=== PATIENT | female | born 1995 | race Caucasian/White ===

== ENCOUNTER 2016-02-21 19:45 | Emergency (ER) | payer OTHER ==
[2016-02-21] MEDS ORDERED: LIDOCAINE 4%/TETRACAINE 0.5%/EPI 0.18% 5 ML TOPICAL SOLN TOP ONE (20:30)
--- NOTE | 2016-02-21 20:30 | ER Document Report ---
ED Medical Screen (RME) - General Stated Complaint: POSSIBLE RIGHT THIGH ABCESS Time seen by provider: 20:29 Mode of Arrival: Ambulatory Information source: Patient Notes: 20 yo female 33 weeks c/o painful lump just right of the underwear line monday, gotten larger and more painful since monday. TRAVEL OUTSIDE OF THE [place] IN LAST 30 DAYS: No - Related Data Allergies/Adverse Reactions: acetaminophen [From Vicodin] Allergy (Verified 02/21/16 20:29) hydrocodone [From Vicodin] Allergy (Verified 02/21/16 20:29)
--- NOTE | 2016-02-21 21:35 | ER Document Report ---
ED Skin Rash/Insect Bite/Abscs - General Chief Complaint: Abscess Stated Complaint: POSSIBLE RIGHT THIGH ABCESS Time seen by provider: 21:30 Mode of Arrival: Ambulatory Information source: Patient Notes: 20-year-old female presents to ED with an abscess to the right eye just below the pending Started as small and has gotten bigger and more painful since Monday. Patient is 33 weeks TRAVEL OUTSIDE OF THE [place] IN LAST 30 DAYS: No - HPI Patient complains to provider of: Tender/swollen area - Right upper thigh Onset: Other - Finding Onset/Duration: Gradual, Worse Quality of pain: Sharp, Throbbing Severity: Moderate Pain Level: 4 Skin Character: Abscess - Right upper inner thigh just below the panty line Skin Temperature: Warm Quality of rash: Painful Identify cause: No Exacerbated by: Movement, Walking Relieved by: Denies Similar symptoms previously: No Recently seen / treated by doctor: Yes - Related Data Allergies/Adverse Reactions: acetaminophen [From Vicodin] Allergy (Verified 02/21/16 20:29) hydrocodone [From Vicodin] Allergy (Verified 02/21/16 20:29) Past Medical History - General Information source: Patient - Social History Smoking Status: Former Smoker Cigarette use (# per day): No Chew tobacco use (# tins/day): No Smoking Education Provided: No Frequency of alcohol use: None Drug Abuse: None Occupation: none Lives with: Family Family History: CAD, Hyperlipidemia, Hypertension - Past Medical History Cardiac Medical History: Reports: None Pulmonary Medical History: Reports: None EENT Medical History: Reports: None Neurological Medical History: Reports: None Endocrine Medical History: Reports: None Renal/ Medical History: Reports: None Malignancy Medical History: Reports: None GI Medical History: Reports: None Musculoskeltal Medical History: Reports None Skin Medical History: Reports None Psychiatric Medical History: Reports: None Traumatic Medical History: Reports: None Infectious Medical History: Reports: None Surgical Hx: Negative Past Surgical History: Reports: None Review of Systems - Review of Systems Constitutional: No symptoms reported EENT: No symptoms reported Cardiovascular: No symptoms reported Respiratory: No symptoms reported Gastrointestinal: No symptoms reported Genitourinary: No symptoms reported Female Genitourinary: No symptoms reported Musculoskeletal: No symptoms reported Skin: Other - Abscess to right upper inner thigh Hematologic/Lymphatic: No symptoms reported Neurological/Psychological: No symptoms reported -: Yes All other systems reviewed and negative Physical Exam - Vital signs Interpretation: Normal Notes: Temperature 97.9 pulse 90 respirations 16 pulse ox 100 BP 123/66 - General General appearance: Appears well, Alert - HEENT Head: Normocephalic, Atraumatic Eyes: Normal Pupils: PERRL - Respiratory Respiratory status: No respiratory distress Chest status: Nontender Breath sounds: Normal Chest palpation: Normal - Cardiovascular Rhythm: Regular Heart sounds: Normal auscultation Murmur: No - Abdominal Inspection: Normal Distension: No distension Bowel sounds: Normal Tenderness: Nontender Organomegaly: No organomegaly - Back Back: Normal, Nontender - Extremities General upper extremity: Normal inspection, Nontender, Normal color, Normal ROM , Normal temperature General lower extremity: Normal inspection, Nontender, Normal color, Normal ROM , Normal temperature, Normal weight bearing. No: Lila's sign - Neurological Neuro grossly intact: Yes Cognition: Normal Orientation: AAOx4 Mi Coma Scale Eye Opening: Spontaneous Mi Coma Scale Verbal: Oriented Mi Coma Scale Motor: Obeys Commands [place] Coma Scale Total: 15 Speech: Normal Motor strength normal: LUE, RUE, LLE, RLE Sensory: Normal - Psychological Associated symptoms: Normal affect, Normal mood - Skin Skin Temperature: Warm Skin Moisture: Dry Skin Color: Normal Skin irregularity: Abscess - Right inner upper thigh Procedures - Incision and Drainage Right Upper Thigh Type: Simple Anesthetic type: 1% Lidocaine mL's of anesthetic: 4 Blade size: 11 I&D procedure: Sterile dressing applied, Other - sugical scrub Incision Method: Incision made with needle Notes: 02/21/16 22:38 moderate amount of purulent Discharge - Discharge Clinical Impression: abscess right upper inner thigh Condition: Stable Disposition: HOME, SELF-CARE Additional Instructions: ABSCESS: You have an abscess (boil). This a pus-forming infection, usually due to staph. Some boils may be left to drain on their own, but most require lancing. From the time the tender lump first appears, it may be three or four days before the abscess is ready to martine. Local heat and rest help at this stage of treatment. An antibiotic may prevent spread of the infection. Once the abscess is opened, packing may be placed into it. This is done so pus is not sealed inside by premature closure of the cavity. The packing will be removed at your follow-up visit or you may be advised to remove it yourself at home. Sometimes this packing must be replaced a few times during healing. The wound will heal with surprisingly little scar. Depending on the size and location of an abscess, healing can take one to four weeks. You may shower and wash the area around the incision site two or three times a day. Antibiotics may be prescribed, but are usually not necessary after an abscess has been drained. If you develop fever, chills, worsening pain, or increasing swelling in the area, call the doctor or return immediately. POST INCISION AND DRAINAGE: You have had an incision made to allow drainage of an abscess. The incision must remain open so that pus and debris can drain from the wound. If the abscess cavity is large, packing is placed. This keeps the tissues from collapsing and trapping pus inside, while the body shrinks the cavity. The packing may need to be replaced every day or two. The physician will instruct you on the packing. Keep a bulky dressing over the area. Replace it if it becomes saturated with blood or pus. Do not disturb the packing (if present). You may shower and cleanse the area with gentle soap and warm water two or three times a day. Local warmth may be soothing, and may promote faster healing. Return if you develop high fever or chills, or if you note spreading redness, increasing swelling, or increasing tenderness. CEPHALEXIN: The antibiotic you've been prescribed is a member of the cephalosporin class. This type of antibiotic covers a wide variety of infections, including those of the skin, lungs, and urinary tract. It's useful for staph infections. This antibiotic is slightly similar to the penicillin family. In rare cases , a person who is allergic to penicillin will also be allergic to this medication. If you have had a severe allergic reaction to penicillin, and have not taken this antibiotic since that time, notify your doctor. Antibiotics which cover many germs ("broad spectrum" antibiotics) are more likely to cause diarrhea or "yeast" infections. Women prone to vaginal yeast problems may suffer an attack after taking this antibiotic. In infants, oral thrush (white spots "stuck" on the cheek) or yeast diaper rash may result. See your doctor if these problems occur. Call at once if you develop itching, hives , shortness of breath, or lightheadedness. FOLLOW-UP CARE: Most simple abscesses will not require a follow up visit. If you had packing placed in the abscess, remove it as instructed by the physician. If you have been referred to a physician for follow-up care, call the physicians office for an appointment as you were instructed or within the next two days. If you experience worsening or a significant change in your symptoms, return to the Emergency Department at any time for re-evaluation. Prescriptions: Cephalexin Monohydrate [Keflex 500 mg Capsule] 500 mg PO QID #28 capsule Referrals: [facility] [Provider Group] - 02/24/16
[2016-02-21] MEDS ORDERED: CEPHALEXIN 500 MG CAPSULE PO ONE (22:13)
[2016-02-21] MEDS ORDERED: ACETAMINOPHEN 325 MG TABLET PO ONE (22:13)
[2016-02-21 22:47] VITALS: BP 106/88
== END 2016-02-21 22:45 | disposition home or self-care (01) ==
LOC: ER 19:45
PROC: 0H9HXZZ Drainage of Right Upper Leg Skin, External Approach (ICD-10-PCS; principal; 2016-02-21)
DX: L02.415 Cutaneous abscess of right lower limb (principal); Z3A.33 33 weeks gestation of pregnancy; Z87.891 Personal history of nicotine dependence
CPT/HCPCS: 99283; 87070; 87205; 87075; 87077; 10060; J3490

== ENCOUNTER 2016-04-14 09:51 | Inpatient (IN) | payer OTHER ==
[2016-04-14] MEDS ORDERED: RINGERS SOLUTION,LACTATED 300 ML IV ONE (10:14)
[2016-04-14] MEDS ORDERED: MISOPROSTOL 0.1 MG TABLET PO ONE ×2 (10:49→15:45)
[2016-04-14 10:50] LABS: APPEARANCE,URINE SLIGHTLY-CLOUDY; BILIRUBIN,URINE NEGATIVE (NEGATIVE); GLUCOSE, URINE NEGATIVE (NEGATIVE); KETONES,URINE NEGATIVE (NEGATIVE); LEUKOCYTE ESTERASE,URINE TRACE (NEGATIVE); NITRITE,URINE NEGATIVE (NEGATIVE); PROTEIN,URINE NEGATIVE (NEGATIVE); URINE SPECIFIC GRAVITY 1.008; UROBILINOGEN,URINE NEGATIVE mg/dL (<2.0)
[2016-04-14] MEDS ORDERED: MISOPROSTOL 0.1 MG TABLET ONE ×2 (10:53→15:22)
[2016-04-14] MEDS: RINGERS SOLUTION,LACTATED 1,000 ML IV PRN ×3 (10:54→19:20)
[2016-04-14 11:08] LABS: URINE BARBITURATES SCREEN NEGATIVE; URINE METHADONE SCREEN NEGATIVE; URINE OPIATES LOW NEGATIVE; URINE PHENCYCLIDINE SCREEN NEGATIVE
[2016-04-14 11:44] LABS: ABSOLUTE BASOPHILS # (AUTO) 0.1 10^3/uL (0.0-0.2); ABSOLUTE EOSINOPHILS # (AUTO) 0.2 10^3/uL (0.0-0.6); ABSOLUTE LYMPHOCYTES (AUTO) 1.8 10^3/uL (0.5-4.7); ABSOLUTE MONOCYTES (AUTO) 0.6 10^3/uL (0.1-1.4); ABSOLUTE NEUT (AUTO) 8.1 10^3/uL (1.7-8.2); BASOPHILS % (AUTO) 0.5 % (0-2); EOSINOPHILS % (AUTO) 1.5 % (0-6); HEMATOCRIT 35.6 % (36.0-47.0); HEMOGLOBIN 12.4 g/dL (12.0-15.5); HGB HCT DIFFERENCE 1.6; LYMPHOCYTES % (AUTO) 16.7 % (13-45); MEAN CORPUSCULAR HEMOGLOBIN 28.7 pg (27.0-33.4); MEAN CORPUSCULAR HGB CONC 34.8 g/dL (32.0-36.0); MEAN CORPUSCULAR VOLUME 83 fl (80-97); MONOCYTES % (AUTO) 5.7 % (3-13); RED BLOOD COUNT 4.31 10^6/uL (3.72-5.28); RED CELL DISTRIBUTION WIDTH 14.2 % (11.5-14.0); SEGMENTED NEUTROPHILS % (AUTO) 75.6 % (42-78); WHITE BLOOD COUNT 10.7 10^3/uL (4.0-10.5)
--- NOTE | 2016-04-14 12:00 | L&D Flow Sheet ---
LD Flowsheet Datetime Report Generated by CPN: 04/14/2016 12:00 Datetime: 04/14/2016 11:49 Vital Signs NBP Sys/Gabby/Mean (mmHg): 132 (QS system process) : 79 (QS system process) : 100 (QS system process) Pulse: 66 (QS system process) Datetime: 04/14/2016 11:34 Vital Signs NBP Sys/Gabby/Mean (mmHg): 148 (QS system process) : 72 (QS system process) : 102 (QS system process) Pulse: 67 (QS system process) Datetime: 04/14/2016 11:30 Uterine Activity Monitor Mode: External; Palpation (Ashleigh Vladimir, RN) Resting Tone (Palpate): Relaxed (Ashleigh Vladimir, RN) Contraction Comments: none (Ashleigh Vladimir, RN) Assessment A Monitor Mode: External US (Ashleigh Vladimir, RN) FHR Baseline Rate : 130 (Ashleigh Vladimir, RN) FHR Baseline Changes: No Baseline Change (Ashleigh Vladimir, RN) Variability: Moderate 6-25 bpm (Ashleigh Vladimir, RN) Accelerations: 15X15 (Ashleigh Vladimir, RN) Decelerations: None (Ashleigh Vladimir, RN) Datetime: 04/14/2016 11:19 Vital Signs NBP Sys/Gabby/Mean (mmHg): 124 (QS system process) : 82 (QS system process) : 99 (QS system process) Pulse: 68 (QS system process) Datetime: 04/14/2016 11:10 Communication Communication Comments: order received from Dr. Pickard for patient to eat lunch (Ashleigh Vladimir, RN) Datetime: 04/14/2016 11:05 I/O Interventions: Up to BR (Ashleigh Vladimir, RN) Datetime: 04/14/2016 11:04 Vital Signs NBP Sys/Gabby/Mean (mmHg): 133 (QS system process) : 79 (QS system process) : 100 (QS system process) Pulse: 76 (QS system process) Datetime: 04/14/2016 11:01 Medications Cervical Ripening Agents: Cytotec @ 50 PO (Ashleigh Gilbert, RN) Datetime: 04/14/2016 11:00 Uterine Activity Monitor Mode: External; Palpation (Ashleigh Gilbert, RN) Resting Tone (Palpate): Relaxed (Ashleigh Gilbert, RN) Contraction Comments: none (Ashleigh Gilbert, RN) Assessment A Monitor Mode: External US (Ashleigh Gilbert, RN) FHR Baseline Rate : 130 (Ashleigh Vladimir, RN) FHR Baseline Changes: No Baseline Change (Ashleigh Vladimir, RN) Variability: Moderate 6-25 bpm (Ashleigh Vladimir, RN) Accelerations: 15X15 (Ashleigh Vladimir, RN) Decelerations: None (Ashleigh Vladimir, RN) Datetime: 04/14/2016 10:43 Communication Communication Comments: order received from Dr. Pickard for Cytotec 50 mg PO x1 now (Ashleigh Vladimir, RN) Datetime: 04/14/2016 10:41 Vaginal Exam Dilatation (cm): 2.0 (Ashleigh Gilbert RN) Effacement (%): 75 (Ashleigh Gilbert RN) Station: -2 (Ashleigh Gilbert RN) Exam by: Cody Gilbert RN (Ashleigh Gilbert RN) Vaginal Bleeding: None (Ashleigh Gilbert RN) Cervix, Consistency: Soft (Ashleigh Gilbert RN) Cervix, Position: Posterior (Ashleigh Gilbert RN) I/O Interventions: Up to BR (Ashleigh Gilbert RN) Datetime: 04/14/2016 10:30 Uterine Activity Monitor Mode: External; Palpation (Ashleigh Vladimir, RN) Frequency (min): none (Ashleigh Vladimir, RN) Resting Tone (Palpate): Relaxed (Ashleigh Vladimir, RN) Assessment A Monitor Mode: External US (Ashleigh Vladimir, RN) FHR Baseline Rate : 125 (Ashleigh Vladimir, RN) FHR Baseline Changes: No Baseline Change (Ashleigh Vladimir, RN) Variability: Moderate 6-25 bpm (Ashleigh Vladimir, RN) Accelerations: 15X15 (Ashleigh Vladimir, RN) Decelerations: None (Ashleigh Vladimir, RN) Datetime: 04/14/2016 10:22 Patient Care IV/Blood Work: IV Started; IV Bolus Started (Ashleigh Vladimir, RN) Datetime: 04/14/2016 10:20 Monitor Interventions for UA: Winter Adjusted (Ashleigh Vladimir, RN) Assessment A Monitor Mode: External US (Ashleigh Vladimir, RN) Pain Pain Scale: 0 (Ashleigh Gilbert RN) Pain Presence: None/Denies (Ashleigh Gilbert RN) Pain Type: N/A (Ashleigh Gilbert RN) Pain Goal: 1 (Ashleigh Gilbert RN) Pain Relief Measures: Comfort Measures (Ashleigh Gilbert RN) Membrane Status: Intact (Annotations: intact per patient) (Ashleigh Gilbert RN) Vaginal Bleeding: None (Ashleigh Gilbert RN) Maternal Assessment Level of Consciousness: Fully Conscious (Ashleigh Gilbert, EMILY) DTR's/Clonus: DTRs 2+; No Clonus (Ashleigh Gilbert RN) Headache: Denies (Ashleigh Gilbert, EMILY) Breath Sounds, Left: Clear and Equal (Ashleigh Gilbert RN) Breath Sounds, Right: Clear and Equal (Ashleigh Gilbert RN) Nausea/Vomiting: Denies (Ashleigh Gilbert, EMILY) RUQ Epigastric Pain: Denies (Ashleigh Gilbert RN) Patient Care IV/Blood Work: IV Started; IV Infusing per Order (Ashleigh Gilbert RN) Oxygen Method: Room Air (Ashleigh Gilbert RN) Procedures: Consents Signed (Ashleigh Gilbert RN) Patient Position/Activity: Left Tilt; Low Fowlers (Ashleigh Gilbert RN) Comfort Measures: Family Support (sAhleigh Gilbert RN) I/O Interventions: Popsicle (Ashleigh Gilbert RN) Teaching Instructional Method: Verbal (Ashleigh Gilbert RN) Plan of Care: Plan of Care Discussed; Vaginal Delivery; Labor; Induction (Ashleigh Gilbert RN) Unit Routine: [place] to Room; Call Jane; Bed; Visiting Policy; Waiting Areas (Ashleigh Gilbert RN) Labor/Induction: Labor Stages (Ashleigh Gilbert RN) Related: Common Discomforts of (Ashleigh Gilbert RN) Datetime: 04/14/2016 10:19 Vital Signs NBP Sys/Gabby/Mean (mmHg): 125 (QS system process) : 78 (QS system process) : 97 (QS system process) Pulse: 66 (QS system process)
--- NOTE | 2016-04-14 14:00 | L&D Flow Sheet ---
LD Flowsheet Datetime Report Generated by CPN: 04/14/2016 14:00 Datetime: 04/14/2016 13:49 NBP Sys/Gabby/Mean (mmHg): 119 (QS system process) : 69 (QS system process) : 89 (QS system process) Pulse: 88 (QS system process) Datetime: 04/14/2016 13:34 NBP Sys/Gabby/Mean (mmHg): 131 (QS system process) : 76 (QS system process) : 88 (QS system process) Pulse: 80 (QS system process) Datetime: 04/14/2016 13:20 NBP Sys/Gabby/Mean (mmHg): 145 (QS system process) : 83 (QS system process) : 108 (QS system process) Pulse: 78 (QS system process) Datetime: 04/14/2016 13:04 NBP Sys/Gabby/Mean (mmHg): 130 (QS system process) : 74 (QS system process) : 96 (QS system process) Pulse: 60 (QS system process) Datetime: 04/14/2016 13:00 Monitor Mode: External; Palpation (Ashleigh Gilbert, RN) Resting Tone (Palpate): Relaxed (Ashleigh Gilbert, RN) Contraction Comments: none (Ashleigh Gilbert, RN) Monitor Mode: External US (Ashleigh Gilbert, RN) FHR Baseline Rate : 130 (Ashleigh Gilbert, RN) FHR Baseline Changes: No Baseline Change (Ashleigh Vladimir, RN) Variability: Moderate 6-25 bpm (Ashleigh Vladimir, RN) Accelerations: 15X15 (Ashleigh Vladimir, RN) Decelerations: None (Ashleigh Gilbert, RN) Datetime: 04/14/2016 12:53 I/O Interventions: Up to BR (Ashleigh Gilbert, RN) Datetime: 04/14/2016 12:49 NBP Sys/Gabby/Mean (mmHg): 135 (QS system process) : 75 (QS system process) : 97 (QS system process) Pulse: 75 (QS system process) Datetime: 04/14/2016 12:34 NBP Sys/Gabby/Mean (mmHg): 123 (QS system process) : 69 (QS system process) : 90 (QS system process) Pulse: 66 (QS system process) Datetime: 04/14/2016 12:30 Monitor Mode: External; Palpation (Ashleigh Gilbert, RN) Resting Tone (Palpate): Relaxed (Ashleigh Gilbert, RN) Contraction Comments: none (Ashleigh Gilbert, RN) Monitor Mode: External US (Ashleigh Gilbert, RN) FHR Baseline Rate : 130 (Ashleigh Gilbert, RN) FHR Baseline Changes: No Baseline Change (Ashleigh Gilbert, RN) Variability: Moderate 6-25 bpm (Ashleigh Gilbert, RN) Accelerations: 15X15 (Ashleigh Gilbert, RN) Decelerations: None (Ashleigh Gilbert, RN) Datetime: 04/14/2016 12:19 NBP Sys/Gabby/Mean (mmHg): 130 (QS system process) : 70 (QS system process) : 93 (QS system process) Pulse: 66 (QS system process) Datetime: 04/14/2016 12:04 NBP Sys/Gabby/Mean (mmHg): 132 (QS system process) : 74 (QS system process) : 95 (QS system process) Pulse: 66 (QS system process) Datetime: 04/14/2016 12:00 Monitor Mode: External; Palpation (Ashleigh Gilbert RN) Resting Tone (Palpate): Relaxed (Ashleigh Gilbert RN) Contraction Comments: none (Ashleigh Gilbert RN) Monitor Mode: External US (Ashleigh Gilbert RN) FHR Baseline Rate : 140 (Ashleigh Gilbert RN) FHR Baseline Changes: No Baseline Change (Ashleigh Gilbert RN) Variability: Moderate 6-25 bpm (Ashleigh Gilbert RN) Accelerations: 15X15 (Ashleigh Gilbert RN) Decelerations: None (Ashleigh Gilbert RN)
--- NOTE | 2016-04-14 16:01 | L&D Flow Sheet ---
LD Flowsheet Datetime Report Generated by CPN: 04/14/2016 16:00 Datetime: 04/14/2016 15:26 I/O Interventions: Up to BR (Ashleigh Vladimir, RN) Datetime: 04/14/2016 15:20 NBP Sys/Gabby/Mean (mmHg): 111 (QS system process) : 58 (QS system process) : 79 (QS system process) Pulse: 75 (QS system process) Datetime: 04/14/2016 15:19 Medication Comments: Cytotec 25 mcg PO x1 now (Ashleigh Gilbert, RN) Datetime: 04/14/2016 15:13 Communication Comments: Order received from Dr. Pickard for Cytotec 25 mcg PO x1 now (Ashleigh Gilbert, EMILY) Datetime: 04/14/2016 15:09 Dilatation (cm): 2.0 (Ashleigh Gilbert RN) Effacement (%): 75 (Ashleigh Gilbert RN) Station: -2 (Ashleigh Gilbert RN) Exam by: Cody Gilbert RN (Ashleigh Vladimir, RN) Vaginal Bleeding: None (Ashleigh Vladimir, RN) Cervix, Consistency: Soft (Ashleigh Vladimir, RN) Cervix, Position: Posterior (Ashleigh Gilbert, RN) Datetime: 04/14/2016 15:04 NBP Sys/Gabby/Mean (mmHg): 120 (QS system process) : 66 (QS system process) : 88 (QS system process) Pulse: 75 (QS system process) Datetime: 04/14/2016 14:39 I/O Interventions: Up to BR (Ashleigh Vladimir, RN) Datetime: 04/14/2016 14:34 NBP Sys/Gabby/Mean (mmHg): 117 (QS system process) : 56 (QS system process) : 79 (QS system process) Pulse: 81 (QS system process) Datetime: 04/14/2016 14:19 NBP Sys/Gabby/Mean (mmHg): 113 (QS system process) : 59 (QS system process) : 79 (QS system process) Pulse: 81 (QS system process) Datetime: 04/14/2016 14:04 NBP Sys/Gabby/Mean (mmHg): 122 (QS system process) : 73 (QS system process) : 89 (QS system process) Pulse: 91 (QS system process)
[2016-04-14] MEDS ORDERED: NALBUPHINE HCL INJ 10 MG/1 ML AMPULE ONE (16:33)
[2016-04-14] MEDS ORDERED: HYDROXYZINE PAMOATE 50 MG CAPSULE PO ONE (17:10)
[2016-04-14] MEDS ORDERED: HYDROXYZINE PAMOATE 50 MG CAPSULE ONE (17:15)
[2016-04-14] MEDS ORDERED: BUPIVACAINE HCL 0.25 % INJ/PF (2.5 MG/1 ML) 30 ML VIAL ONE (17:50)
[2016-04-14] MEDS ORDERED: FENTANYL/BUPIVACAINE/NS/PF 200 MCG/100 ML RTUINJ EPI ONE (17:50)
[2016-04-14] MEDS ORDERED: EPHEDRINE SULFATE INJ 50 MG/1 ML AMPULE ONE (17:51)
[2016-04-14] MEDS ORDERED: OXYTOCIN/NORMAL SALINE 20 UNIT/1,000 ML RTUINJ ONE (17:51)
[2016-04-14] MEDS ORDERED: LIDOCAINE 1% INJ-PF (10 MG/ML) 30 ML SDV ONE (17:51)
[2016-04-14] MEDS ORDERED: MISOPROSTOL 0.2 MG TABLET ONE ×2 (17:51→21:17)
--- NOTE | 2016-04-14 18:01 | L&D Flow Sheet ---
LD Flowsheet Datetime Report Generated by CPN: 04/14/2016 18:00 Datetime: 04/14/2016 17:58 Pulse: 83 (QS system process) SpO2 (%): 99 (QS system process) Datetime: 04/14/2016 17:54 I/O Interventions: Up to BR (Ashleigh Vladimir, RN) Datetime: 04/14/2016 17:49 NBP Sys/Gabby/Mean (mmHg): 157 (QS system process) : 73 (QS system process) : 105 (QS system process) Pulse: 105 (QS system process) Datetime: 04/14/2016 17:42 Dilatation (cm): 4.0 (Ashleigh Gilbert, RN) Effacement (%): 90 (Ashleigh Gilbert, RN) Station: 0 (Ashleigh Gilbert, RN) Exam by: S. Camp, RN (Ashleigh Gilbert, RN) Datetime: 04/14/2016 17:35 NBP Sys/Gabby/Mean (mmHg): 162 (QS system process) : 94 (QS system process) : 119 (QS system process) Pulse: 104 (QS system process) Datetime: 04/14/2016 17:30 NBP Sys/Gabby/Mean (mmHg): 159 (QS system process) : 72 (QS system process) : 104 (QS system process) Pulse: 74 (QS system process) Monitor Mode: External; Palpation (Sommer Camp, RNC) Frequency (min): 4-5 (Sommer Camp, RNC) Quality: Moderate (Sommer Camp, RNC) Duration (sec): 40-60 (Sommer Camp, RNC) Duration Criteria: Less than Two 120 Second Contractions (Sommer Camp, RNC) Pattern: Normal: <= 5 Contractions in 10 Minutes (Sommer Camp, RNC) Resting Tone (Palpate): Relaxed (Sommer Camp, RNC) Monitor Mode: External US; Auscultation (Sommer Camp, RNC) FHR Baseline Rate : 120 (Sommer Camp, RNC) FHR Baseline Changes: No Baseline Change (Sommer Camp, RNC) Variability: Moderate 6-25 bpm (Sommer Camp, RNC) Decelerations: Early (Sommer Camp, RNC) Comments: decrease in baseline noted since iv pain meds (Sommer Camp, RNC) Datetime: 04/14/2016 17:29 Procedure Verify: Correct Patient Identity; Correct Side and Site are Marked; Agreement on Procedure to be Done; Relevant Images and Results are Properly Labeled and Displayed; Addressed Need to Administer Antibiotics or Fluids for Irrigation; Safety Precautions Based on Patient History or Medication Use (Ashleigh Gilbert RN) Anesthesia Plans: Epidural (Ashleigh Gilbert RN) Datetime: 04/14/2016 17:20 NBP Sys/Gabby/Mean (mmHg): 180 (QS system process) : 84 (QS system process) : 120 (QS system process) Pulse: 68 (QS system process) Datetime: 04/14/2016 17:15 Medication Comments: Vistaril 50 mg PO x1 now (Ashleigh Gilbert, RN) Datetime: 04/14/2016 17:07 Communication Comments: order received from Dr. Pickard for Vistaril 50 mg PO x1 now (Ashleigh Gilbert RN) Datetime: 04/14/2016 17:04 NBP Sys/Gabby/Mean (mmHg): 141 (QS system process) : 73 (QS system process) : 101 (QS system process) Pulse: 66 (QS system process) Datetime: 04/14/2016 17:00 Monitor Mode: External; Palpation (Ashleigh Gilbert RN) Frequency (min): 4 (Ashleigh Gilbert RN) Quality: Mild (Ashleigh Gilbert RN) Duration (sec): 50-60 (Ahsleigh Gilbert RN) Duration Criteria: Less than Two 120 Second Contractions (Ashleigh Gilbert, RN) Pattern: Normal: <= 5 Contractions in 10 Minutes (Ashleigh Gilbert, RN) Resting Tone (Palpate): Relaxed (Ashleigh Gilbert, RN) Monitor Mode: External US (Ashleigh Gilbert, RN) FHR Baseline Rate : 120 (Ashleigh Gilbert, RN) FHR Baseline Changes: No Baseline Change (Ashleigh Gilbert, RN) Variability: Moderate 6-25 bpm (Ashleigh Vladimir, RN) Accelerations: None (Ashleigh Gilbert, RN) Decelerations: None (Ashleigh Gilbert, RN) Datetime: 04/14/2016 16:50 NBP Sys/Gabby/Mean (mmHg): 138 (QS system process) : 78 (QS system process) : 102 (QS system process) Pulse: 82 (QS system process) Datetime: 04/14/2016 16:37 IV/Blood Work: New IV Bag Hung (Ashleigh Gilbert, RN) Datetime: 04/14/2016 16:34 NBP Sys/Gabby/Mean (mmHg): 132 (QS system process) : 69 (QS system process) : 94 (QS system process) Pulse: 78 (QS system process) Analgesics/Sedatives: Nubain (mg) @ 10 (Ashleigh Gilbert, RN) Datetime: 04/14/2016 16:32 Communication Comments: pharmacy notified to restock Phenergan (Ashleigh Gilbert, RN) Datetime: 04/14/2016 16:31 Communication Comments: patient c/o pain 5/5 with contractions, Dr. Pickard notified and order received for Nubain 10 mg IV x1 now, Phenergan 12.5mg IV x1 now (Ashleigh Gilbert, RN) Datetime: 04/14/2016 16:30 Monitor Mode: External; Palpation (Ashleigh Gilbert, EMILY) Frequency (min): 2-4 (Ashleigh Gilbert, RN) Quality: Mild (Ashleigh Gilbert, RN) Duration (sec): 40-60 (Ashleigh Gilbert, RN) Duration Criteria: Less than Two 120 Second Contractions (Ashleigh Gilbert, RN) Pattern: Normal: <= 5 Contractions in 10 Minutes (Ashleigh Gilbert, RN) Resting Tone (Palpate): Relaxed (Ashleigh Gilbert, RN) Contraction Comments: irritability (Ashleigh Gilbert, RN) Monitor Mode: External US (Ashleigh Gilbert, RN) FHR Baseline Rate : 130 (Ashleigh Gilbert, RN) FHR Baseline Changes: No Baseline Change (Ashleigh Gilbert, RN) Variability: Moderate 6-25 bpm (Ashleigh Gilbert, RN) Accelerations: 15X15 (Ashleigh Gilbert, RN) Decelerations: None (Ashleigh Gilbert, RN) Datetime: 04/14/2016 16:29 Dilatation (cm): 3.0 (Ashleigh Gilbert RN) Effacement (%): 90 (Ashleigh Gilbert RN) Station: -1 (Ashleigh Gilbert RN) Vaginal Exam Comments: Cody Gilbert RN (Ashleigh Gilbert RN) Datetime: 04/14/2016 16:13 NBP Sys/Gabby/Mean (mmHg): 141 (QS system process) : 65 (QS system process) : 93 (QS system process) Pulse: 78 (QS system process) Datetime: 04/14/2016 16:00 Comments: patient in BR, refusing to get back in bed, patient is tearful and states pain is 5/5. RN urging patient to get back in bed to monitor baby before pain medicaton can be given (Ashleigh Gilbert RN)
--- NOTE | 2016-04-14 20:01 | L&D Flow Sheet ---
LD Flowsheet Datetime Report Generated by CPN: 04/14/2016 20:00 Datetime: 04/14/2016 19:52 NBP Sys/Gabby/Mean (mmHg): 142 (QS system process) : 89 (QS system process) : 110 (QS system process) Pulse: 90 (QS system process) LaborFlag: Antepartum (QS system process) Datetime: 04/14/2016 19:37 NBP Sys/Gabby/Mean (mmHg): 131 (QS system process) : 74 (QS system process) : 96 (QS system process) Pulse: 78 (QS system process) LaborFlag: Antepartum (QS system process) Datetime: 04/14/2016 19:22 NBP Sys/Gabby/Mean (mmHg): 128 (QS system process) : 77 (QS system process) : 96 (QS system process) Pulse: 71 (QS system process) LaborFlag: Antepartum (QS system process) Datetime: 04/14/2016 19:15 Monitor Mode: External; Palpation (Ashleigh Gilbert RN) Frequency (min): 1-3 (Ashleigh Gilbert RN) Quality: Mild/Moderate (Ashleigh Gilbert RN) Duration (sec): 50-60 (Ashleigh Gilbert RN) Duration Criteria: Less than Two 120 Second Contractions (Ashleigh Gilbert RN) Pattern: Normal: <= 5 Contractions in 10 Minutes (Ashleigh Gilbert RN) Resting Tone (Palpate): Relaxed (Ashleigh Gilbert RN) Monitor Mode: External US (Ashleigh Gilbert RN) FHR Baseline Rate : 115 (Ashleigh Gilbert RN) FHR Baseline Changes: No Baseline Change (Ashleigh Vladimir, RN) Variability: Moderate 6-25 bpm (Ashleigh Gilbert, RN) Accelerations: 15X15 (Ashleigh Gilbert, RN) Decelerations: None (Ashleigh Gilbert, RN) Datetime: 04/14/2016 19:12 Communication Comments: report given to BCira Hernandez, RN. Care relinquished (Ashleigh Gilbert, RN) Datetime: 04/14/2016 19:07 NBP Sys/Gabby/Mean (mmHg): 131 (QS system process) : 77 (QS system process) : 96 (QS system process) Pulse: 80 (QS system process) LaborFlag: Antepartum (QS system process) Datetime: 04/14/2016 19:00 Monitor Mode: External; Palpation (Ashleigh Gilbert, RN) Frequency (min): 1.5-3 (Ashleigh Gilbert, RN) Quality: Mild/Moderate (Ashleigh Gilbert, RN) Duration (sec): 50-70 (Ashleigh Gilbert, RN) Duration Criteria: Less than Two 120 Second Contractions (Ashleigh Gilbert, RN) Pattern: Normal: <= 5 Contractions in 10 Minutes (Ashleigh Gilbert, RN) Resting Tone (Palpate): Relaxed (Ashleigh Gilbert, RN) Monitor Mode: External US (Ashleigh Gilbert, RN) FHR Baseline Rate : 130 (Ashleigh Gilbert, RN) FHR Baseline Changes: No Baseline Change (Ashleigh Gilbert, RN) Variability: Moderate 6-25 bpm (Ashleigh Gilbert, RN) Accelerations: None (Ashleigh Gilbert, RN) Decelerations: Early (Ashleigh Gilbert, RN) Datetime: 04/14/2016 18:53 NBP Sys/Gabby/Mean (mmHg): 137 (QS system process) : 74 (QS system process) : 96 (QS system process) Pulse: 81 (QS system process) LaborFlag: Antepartum (QS system process) Datetime: 04/14/2016 18:46 Patient Position/Activity: Left Tilt; Low Fowlers (Ashleigh Gilbert, RN) Datetime: 04/14/2016 18:45 Monitor Mode: External; Palpation (Ashleigh Gilbert, EMILY) Frequency (min): 2.5-3 (Ashleigh Gilbert, EMILY) Quality: Mild/Moderate (Ashleigh Gilbert, RN) Duration (sec): 50-80 (Ashleigh Gilbert, RN) Duration Criteria: Less than Two 120 Second Contractions (Ashleigh Gilbert, RN) Pattern: Normal: <= 5 Contractions in 10 Minutes (Ashleigh Gilbert, RN) Resting Tone (Palpate): Relaxed (Ashleigh Gilbert, RN) Monitor Mode: External US (Ashleigh Gilbert, RN) FHR Baseline Rate : 110 (Ashleigh Gilbert, RN) FHR Baseline Changes: No Baseline Change (Ashleigh Gilbert, RN) Variability: Moderate 6-25 bpm (Ashleigh Gilbert, RN) Accelerations: None (Ashleigh Gilbert, RN) Decelerations: None (Ashleigh Gilbert, RN) I/O Interventions: Jackman Cath Inserted (Ashleigh Gilbert, RN) Datetime: 04/14/2016 18:40 Pulse: 81 (QS system process) SpO2 (%): 100 (QS system process) Temperature (F): 98.2 (Ashleigh Gilbert RN) Temperature (C): 36.8 (QS system process) Temperature Route: Oral (Ashleigh Gilbert RN) LaborFlag: Antepartum (QS system process) Datetime: 04/14/2016 18:35 Pulse: 88 (QS system process) SpO2 (%): 99 (QS system process) LaborFlag: Antepartum (QS system process) Datetime: 04/14/2016 18:34 NBP Sys/Gabby/Mean (mmHg): 133 (QS system process) : 70 (QS system process) : 94 (QS system process) Pulse: 82 (QS system process) LaborFlag: Antepartum (QS system process) Datetime: 04/14/2016 18:33 NBP Sys/Gabby/Mean (mmHg): 129 (QS system process) : 77 (QS system process) : 92 (QS system process) Pulse: 87 (QS system process) LaborFlag: Antepartum (QS system process) Datetime: 04/14/2016 18:32 Anesthesia Plans: Epidural (Ashleigh Gilbert, RN) Epidural Positioning: Sitting (Ashleigh Gilbert, RN) Epidural Procedure Other: Pump Started (Ashleigh Gilbert, RN) Datetime: 04/14/2016 18:31 NBP Sys/Gabby/Mean (mmHg): 130 (QS system process) : 68 (QS system process) : 91 (QS system process) Pulse: 104 (QS system process) LaborFlag: Antepartum (QS system process) Datetime: 04/14/2016 18:30 NBP Sys/Gabby/Mean (mmHg): 166 (QS system process) : 82 (QS system process) : 108 (QS system process) Pulse: 100 (QS system process) Pulse: 107 (QS system process) SpO2 (%): 98 (QS system process) Monitor Mode: External; Palpation (Ashleigh Gilbert RN) Frequency (min): 2-2.5 (Ashleigh Gilbert RN) Quality: Mild/Moderate (Ashleigh Gilbert RN) Duration (sec): 50-70 (Ashleigh Gilbert RN) Duration Criteria: Less than Two 120 Second Contractions (Ashleigh Gilbert RN) Pattern: Normal: <= 5 Contractions in 10 Minutes (Ashleigh Gilbert RN) Resting Tone (Palpate): Relaxed (Ashleigh Gilbert RN) Monitor Mode: External US (Ashleigh Gilbert RN) Comments: patient sitting up for epidural, unable to trace due to patient position, RN at bedside (Ashleigh Gilbert RN) LaborFlag: Antepartum (QS system process) Datetime: 04/14/2016 18:28 NBP Sys/Gabby/Mean (mmHg): 143 (QS system process) NBP Sys/Gabby/Mean (mmHg): 153 (QS system process) : 67 (QS system process) : 73 (QS system process) : 96 (QS system process) : 105 (QS system process) Pulse: 100 (QS system process) Pulse: 96 (QS system process) Anesthesia Plans: Epidural (Ashleigh Gilbert RN) Epidural Positioning: Sitting (Ashleigh Gilbert RN) Epidural Procedure: Loading Dose (Ashleigh Gilbert RN) LaborFlag: Antepartum (QS system process) Datetime: 04/14/2016 18:27 Anesthesia Plans: Epidural (Ashleigh Gilbert RN) Epidural Positioning: Sitting (Ashleigh Gilbert RN) Epidural Procedure: Test Dose (Ashleigh Gilbert RN) Datetime: 04/14/2016 18:26 NBP Sys/Gabby/Mean (mmHg): 152 (QS system process) : 85 (QS system process) : 110 (QS system process) Pulse: 106 (QS system process) Anesthesia Plans: Epidural (Ashleigh Gilbert RN) Epidural Positioning: Sitting (Ashleigh Gilbert RN) Epidural Procedure: Cath Placed (Ashleigh Gilbert RN) LaborFlag: Antepartum (QS system process) Datetime: 04/14/2016 18:25 Pulse: 107 (QS system process) SpO2 (%): 100 (QS system process) LaborFlag: Antepartum (QS system process) Datetime: 04/14/2016 18:24 NBP Sys/Gabby/Mean (mmHg): 153 (QS system process) : 72 (QS system process) : 104 (QS system process) Pulse: 94 (QS system process) LaborFlag: Antepartum (QS system process) Datetime: 04/14/2016 18:21 NBP Sys/Gabby/Mean (mmHg): 173 (QS system process) : 96 (QS system process) : 122 (QS system process) Pulse: 100 (QS system process) LaborFlag: Antepartum (QS system process) Datetime: 04/14/2016 18:20 Pulse: 92 (QS system process) SpO2 (%): 96 (QS system process) LaborFlag: Antepartum (QS system process) Datetime: 04/14/2016 18:16 Procedure Verify: Correct Patient Identity; Correct Side and Site are Marked; Accurate Procedure Consent Form; Agreement on Procedure to be Done; Correct Patient Position; Relevant Images and Results are Properly Labeled and Displayed; Addressed Need to Administer Antibiotics or Fluids for Irrigation; Safety Precautions Based on Patient History or Medication Use (Ashleigh Gilbert RN) Anesthesia Plans: Epidural (Ashleigh Vladimir, RN) Epidural Positioning: Sitting (Ashleigh Gilbert, RN) Datetime: 04/14/2016 18:11 Pulse: 91 (QS system process) SpO2 (%): 98 (QS system process) LaborFlag: Antepartum (QS system process) Datetime: 04/14/2016 18:05 NBP Sys/Gabby/Mean (mmHg): 141 (QS system process) : 68 (QS system process) : 97 (QS system process) Pulse: 106 (QS system process) Pulse: 75 (QS system process) SpO2 (%): 100 (QS system process) LaborFlag: Antepartum (QS system process) Datetime: 04/14/2016 18:00 Monitor Mode: External; Palpation (Ashleigh Gilbert RN) Quality: Mild/Moderate (Ashleigh Gilbert RN) Duration Criteria: Less than Two 120 Second Contractions (Ashleigh Gilbert RN) Pattern: Normal: <= 5 Contractions in 10 Minutes (Ashleigh Gilbert RN) Resting Tone (Palpate): Relaxed (Ashleigh Gilbert RN) Contraction Comments: difficult to trace contractions due to patient position, RN at bedside adjusting monitor (Ashleigh Gilbert RN) Monitor Mode: External US (Ashleigh Gilbert RN) FHR Baseline Rate : 110 (Ashleigh Gilbert RN) FHR Baseline Changes: No Baseline Change (Ashleigh Gilbert RN) Variability: Moderate 6-25 bpm (Ashleigh Gilbert RN) Accelerations: None (Ashleigh Gilbert RN) Decelerations: Early (Ashleigh Gilbert RN)
--- NOTE | 2016-04-14 22:01 | L&D Flow Sheet ---
LD Flowsheet Datetime Report Generated by CPN: 04/14/2016 22:00 Datetime: 04/14/2016 21:52 NBP Sys/Gabby/Mean (mmHg): 133 (QS system process) : 72 (QS system process) : 96 (QS system process) Pulse: 95 (QS system process) Datetime: 04/14/2016 21:37 NBP Sys/Gabby/Mean (mmHg): 136 (QS system process) : 72 (QS system process) : 97 (QS system process) Pulse: 86 (QS system process) Datetime: 04/14/2016 21:30 Stage of : Recovery (Venecia Hernandez, RN) Pain Scale: 0 (Venecia Hernandez, RN) Pain Presence: None/Denies (Venecia Hernandez, RN) Pain Type: N/A (Venecia Hernandez, RN) Datetime: 04/14/2016 21:22 NBP Sys/Gabby/Mean (mmHg): 135 (QS system process) : 73 (QS system process) : 99 (QS system process) Pulse: 77 (QS system process) Datetime: 04/14/2016 21:15 Pain Scale: 0 (Venecia Hernandez, RN) Pain Presence: None/Denies (Venecia Hernandez, RN) Pain Type: N/A (Venecia Hernandez, RN) Datetime: 04/14/2016 21:07 NBP Sys/Gabby/Mean (mmHg): 136 (QS system process) : 71 (QS system process) : 99 (QS system process) Pulse: 97 (QS system process) Datetime: 04/14/2016 21:00 Stage of : Recovery (Venecia Hernandez, RN) Pain Scale: 0 (Venecia Hernandez, RN) Pain Presence: None/Denies (Venecia Hernandez, RN) Pain Type: N/A (Venecia Hernandez, RN) Datetime: 04/14/2016 20:52 NBP Sys/Gabby/Mean (mmHg): 133 (QS system process) : 77 (QS system process) : 96 (QS system process) Pulse: 96 (QS system process) Datetime: 04/14/2016 20:50 Stage of : Recovery (Venecia Hernandez, RN) Datetime: 04/14/2016 20:45 Stage of : Recovery (Venecia Hernandez, RN) Respirations: 18 (Venecia Hernandez, RN) Pain Scale: 0 (Venecia Hernandez, RN) Pain Presence: None/Denies (Venecia Hernandez, RN) Pain Type: N/A (Venecia Hernandez, RN) Datetime: 04/14/2016 20:37 NBP Sys/Gabby/Mean (mmHg): 124 (QS system process) : 59 (QS system process) : 84 (QS system process) Pulse: 97 (QS system process) Datetime: 04/14/2016 20:30 Stage of : Recovery (Venecia Hernandez, RN) Respirations: 18 (Venecia Hernandez, RN) Pain Scale: 0 (Venecia Hernandez, RN) Pain Presence: None/Denies (Venecia Hernandez, RN) Pain Type: N/A (Venecia Hernandez, RN) Datetime: 04/14/2016 20:22 NBP Sys/Gabby/Mean (mmHg): 135 (QS system process) : 87 (QS system process) : 106 (QS system process) Pulse: 104 (QS system process) LaborFlag: Labor (QS system process) Datetime: 04/14/2016 20:15 Stage of : Labor (Venecia Hernandez, EMILY) Monitor Mode: External; Palpation (Venecia Hernandez, RN) Frequency (min): 1-3 (Venecia Hernandez, RN) Quality: Strong (Venecia Hernandez, RN) Duration (sec): 40-80 (Venecia Hernandez, RN) Pattern: Normal: <= 5 Contractions in 10 Minutes (Venecia Hernandez, RN) Resting Tone (Palpate): Relaxed (Venecia Hernandez, RN) Monitor Mode: External US (Venecia Hernandez, RN) FHR Baseline Rate : 120 (Venecia Hernandez, RN) FHR Baseline Changes: No Baseline Change (Venecia Hernandez, RN) Variability: Moderate 6-25 bpm (Venecia Hernandez, RN) Accelerations: 15X15 (Venecia Hernandez, RN) Decelerations: Variable (Venecia Hernandez, RN) Pushing: Coached on Pushing (Venecia Hernandez, RN) Pushing Position: Pushing with Contractions (Venecia Hernandez, RN) Pushing Progress: Descent with Pushing; with Pushing (Venecia Hernandez, RN) Stage 2 Comments: Viable female infant delivered by Dr Pickard (Venecia Hernandez, RN) Stage 2 Comments: Placenta delivered and inspection by Dr Pickard (Venecia Hernandez, RN) Communication: RN at Bedside; RN Reviewed Strip (Venecia Hernandez, RN) Datetime: 04/14/2016 20:13 Communication: Provider at Bedside (Venecia Hernandez, RN) Datetime: 04/14/2016 20:07 NBP Sys/Gabby/Mean (mmHg): 136 (QS system process) : 83 (QS system process) : 101 (QS system process) Pulse: 90 (QS system process) LaborFlag: Labor (QS system process) Datetime: 04/14/2016 20:00 Stage of : Labor (Venecia Hernandez RN) Monitor Mode: External; Palpation (Venecia Hernandez RN) Frequency (min): 1-3.5 (Venecia Hernandez RN) Quality: Strong (Venecia Hernandez RN) Duration (sec): 60-90 (Venecia Hernandez RN) Pattern: Normal: <= 5 Contractions in 10 Minutes (Venecia Hernandez RN) Resting Tone (Palpate): Relaxed (Venecia Hernandez RN) Monitor Mode: External US (Venecia Hernandez RN) FHR Baseline Rate : 120 (Venecia Hernandez RN) Variability: Moderate 6-25 bpm (Venecia Hernandez RN) Accelerations: 15X15 (Venecia Hernandez RN) Decelerations: None (Venecia Hernandez RN) Pushing: Coached on Pushing (Venecia Hernandez RN) Pushing Position: Pushing with Contractions (Venecia Hernandez RN) Pushing Progress: Descent with Pushing (Venecia Hernandez RN) Stage 2 Comments: RN at bedside continously monitoring FHR while pushing with patient. (Venecia Hernandez RN) Communication: RN at Bedside; RN Reviewed Strip (Venceia Hernandez RN)
[2016-04-14] MEDS ORDERED: PROMETHAZINE HCL 25 MG SUPP.RECT PR PRN (22:08)
[2016-04-14] MEDS ORDERED: NA PHOS,M-B/NA PHOS,DI-BA (ADULT) 133 ML ENEMA PR PRN (22:08)
[2016-04-14] MEDS ORDERED: ZOLPIDEM TARTRATE 5 MG TABLET PO PRN (22:08)
[2016-04-14] MEDS ORDERED: ACETAMINOPHEN WITH CODEINE #3 TABLET PO PRN ×2 (22:08)
[2016-04-14] MEDS ORDERED: PROMETHAZINE HCL INJ 25 MG/1 ML VIAL IV PRN (22:08)
[2016-04-14] MEDS ORDERED: ACETAMINOPHEN 650 MG SUPP.RECT PR PRN (22:08)
[2016-04-14] MEDS ORDERED: MEASLES,MUMPS&RUBELLA VACC/PF 0.5 ML VIAL SUBCUT PRN (22:08)
[2016-04-14] MEDS ORDERED: GLYCERIN/WITCH HAZEL LEAF 1 EACH MED..PAD TP PRN (22:08)
[2016-04-14] MEDS ORDERED: PROMETHAZINE HCL 25 MG TABLET PO PRN (22:08)
[2016-04-14] MEDS ORDERED: BENZOCAINE/MENTHOL AEROSOL SPRAY 56 ML TOP PRN (22:08)
[2016-04-14] MEDS ORDERED: DIPHENHYDRAMINE HCL 25 MG CAPSULE PO PRN (22:08)
[2016-04-14] MEDS ORDERED: DIPH/PERTUSS(ACELL)/TETANUS VAC/PF 0.5 ML SYR (>=10YO) IM PRN (22:08)
[2016-04-14] MEDS ORDERED: PSEUDOEPHEDRINE HCL 30 MG TABLET PO PRN (22:08)
[2016-04-14] MEDS ORDERED: OXYTOCIN/NORMAL SALINE 1,000 ML IV PRN (22:08)
[2016-04-14] MEDS ORDERED: MAGNESIUM HYDROXIDE SUSP 30 ML UDCUP PO PRN (22:08)
[2016-04-14] MEDS ORDERED: DIBUCAINE 1% OINTMENT 28 GM TP PRN (22:08)
--- NOTE | 2016-04-14 22:30 | Admission Physical ---
Datetime Report Generated by CPN: 04/14/2016 22:29 CURRENT ADMISSION Chief Complaint: Scheduled Induction of Labor Indication for Induction: Post Dates; Oligohydramnios Admit Plan: Admit to Unit; Initiate Labor Induction Protocol ALLERGIES Medication Allergies: No Medication Allergies: No Known Drug Allergies (04/14/2016) Medication Allergies: hydrocodone (04/14/2016); acetaminophen (04/14/2016) Medication Allergies: hydrocodone (02/21/2016); acetaminophen (02/21/2016) Latex: No Latex Allergies Food Allergies: denies Environmental Allergies: denies OBSTETRICAL HISTORY EDC: 04/09/2016 00:00 : 2 Para: 0 Term: 0 : 0 SAB: 0 IAB: 0 Ectopic: 0 Livin Cesareans: 0 VBACs: 0 Multiple Births: 0 Gestational Diabetes: No Rh Sensitization: No Incompetent Cervix: No MIKE: No Infertility: No ART Treatment: No Uterine Anomaly: No IUGR: No Hx Previous C/S: No Macrosomia: No Hx Loss/Stillborn: No PIH: No Hx : No Placenta Previa/Abruption: No Depression/PP Depression: No PTL/PROM: No Post Hemorrhage: No Current Procedures: Ultrasound; NST Obstetrical History Comments: G1: SAB G2: current SEE RECORDS Alcohol: No Marijuana : No Cocaine: No Other Illicit Drugs: No Cigarettes: Former Smoker. [id number] MEDICAL HISTORY Diabetes: No Blood Transfusion: No Pulmonary Disease (Asthma, TB): No Breast Disease: No Hypertension: No Perinatal Coordinator Surgery: No Heart Disease: No Hosp/Surgery: No Autoimmune Disorder: No Anesthetic Complications: No Kidney Disease: No Abnormal Pap Smear: No Neuro/Epilepsy: No Psychiatric Disorders: No Other Medical Diseases: No Hepatitis/Liver Disease: No Significant Family History: No Varicosities/Phlebitis: No Trauma/Violence : No Thyroid Dysfunction: No INFECTIOUS HISTORY Gonorrhea: No Genital Herpes: No Chlamydia: No Tuberculosis: No Syphilis: No Hepatitis: No HIV/AIDS Exposure: No Rash or Viral Illness: No HPV: No PHYSICAL EXAM General: Normal HEENT: Normal Neurologic: Normal Thyroid: Deferred Heart: Normal Lungs: Normal Breast: Deferred Back: Normal Abdomen: Normal Genitourinary Exam: Normal Extremities: Normal DTRs: Normal Pelvic Type: Adequate Vital Signs: Reviewed; Within Normal Limits VAGINAL EXAM Dilatation: 2 Effacement: 50 Station: -3 MEMBRANES Membranes: Intact FETUS A EGA: 40.5 Monitoring: External US FHR- Baseline: 140 Variability: Moderate 6-25bpm Accelerations: 15X15 Decelerations: None FHR Category: Category I Presentation: Vertex PLANS FOR LABOR AND DELIVERY Labor and Delivery: None Pain Management: Epidural Feeding Preference: Breast Benefit of Breast Feed Discussed: Yes Circumcision: N/A INFORMED CONSENT Signature: with User ID: [email or web address]
[2016-04-14] MEDS ORDERED: IBUPROFEN 800 MG TABLET ONE (23:05)
[2016-04-15] MEDS: IBUPROFEN 800 MG TABLET PO SCH ×3 (05:50→21:22)
--- NOTE | 2016-04-15 07:01 | L&D Flow Sheet ---
LD Flowsheet Datetime Report Generated by CPN: 04/15/2016 07:00 Datetime: 04/14/2016 22:26 Stage of : Recovery (Venecia Hernandez, RN) Datetime: 04/14/2016 22:15 Respirations: 18 (Venecia Hernandez, RN) Temperature (F): 98.4 (Venecia Hernandez, RN) Temperature (C): 36.9 (QS system process) Temperature Route: Oral (Venecia Hernandez, RN) Pain Scale: 0 (Venecia Hernandez, RN) Pain Presence: None/Denies (Venecia Hernandez, RN) Pain Type: N/A (Venecia Hernandez, RN) Datetime: 04/14/2016 22:07 NBP Sys/Gabby/Mean (mmHg): 136 (QS system process) : 70 (QS system process) : 97 (QS system process) Pulse: 74 (QS system process) Datetime: 04/14/2016 21:52 NBP Sys/Gabby/Mean (mmHg): 133 (QS system process) : 72 (QS system process) : 96 (QS system process) Pulse: 95 (QS system process) Datetime: 04/14/2016 21:45 Pain Scale: 0 (Venecia Hernandez, RN) Pain Presence: None/Denies (Venecia Hernandez, RN) Pain Type: N/A (Venecia Hernandez, RN) Datetime: 04/14/2016 21:37 NBP Sys/Gabby/Mean (mmHg): 136 (QS system process) : 72 (QS system process) : 97 (QS system process) Pulse: 86 (QS system process) Datetime: 04/14/2016 21:30 Pain Scale: 0 (Venecia Hernandez, RN) Pain Presence: None/Denies (Venecia Hernandez, RN) Pain Type: N/A (Venecia Hernandez, RN) Datetime: 04/14/2016 21:22 NBP Sys/Gabby/Mean (mmHg): 135 (QS system process) : 73 (QS system process) : 99 (QS system process) Pulse: 77 (QS system process) Datetime: 04/14/2016 21:15 Pain Scale: 0 (Venecia Hernandez, RN) Pain Presence: None/Denies (Venecia Hernandez, RN) Pain Type: N/A (Venecia Hernandez, RN) Datetime: 04/14/2016 21:07 NBP Sys/Gabby/Mean (mmHg): 136 (QS system process) : 71 (QS system process) : 99 (QS system process) Pulse: 97 (QS system process) Datetime: 04/14/2016 21:00 Stage of : Recovery (Venecia Hernandez, RN) Pain Scale: 0 (Venecia Hernandez, RN) Pain Presence: None/Denies (Venecia Hernandez, RN) Pain Type: N/A (Venecia Hernandez, RN) Datetime: 04/14/2016 20:52 NBP Sys/Gabby/Mean (mmHg): 133 (QS system process) : 77 (QS system process) : 96 (QS system process) Pulse: 96 (QS system process) Datetime: 04/14/2016 20:50 Stage of : Recovery (Venecia Hernandez, RN) Datetime: 04/14/2016 20:45 Stage of : Recovery (Venecia Hernandez, RN) Respirations: 18 (Venecia Hernandez, RN) Pain Scale: 0 (Venecia Hernandez, RN) Pain Presence: None/Denies (Venecia Hernandez, RN) Pain Type: N/A (Venecia Hernandez, RN) Datetime: 04/14/2016 20:37 NBP Sys/Gabby/Mean (mmHg): 124 (QS system process) : 59 (QS system process) : 84 (QS system process) Pulse: 97 (QS system process) Datetime: 04/14/2016 20:30 Stage of : Recovery (Venecia Hernandez, RN) Respirations: 18 (Venecia Hernandez, RN) Pain Scale: 0 (Venecia Hernandez, RN) Pain Presence: None/Denies (Venecia Hernandez, RN) Pain Type: N/A (Venecia Hernandez, RN) Datetime: 04/14/2016 20:22 NBP Sys/Gabby/Mean (mmHg): 135 (QS system process) : 87 (QS system process) : 106 (QS system process) Pulse: 104 (QS system process) LaborFlag: Labor (QS system process) Datetime: 04/14/2016 20:15 Stage of : Labor (Venecia Hernandez, RN) Monitor Mode: External; Palpation (Venecia Hernandez, RN) Frequency (min): 1-3 (Venecia Hernandez RN) Quality: Strong (Venecia Hernandez RN) Duration (sec): 40-80 (Venecia Hernandez RN) Pattern: Normal: <= 5 Contractions in 10 Minutes (Venecia Hernandez RN) Resting Tone (Palpate): Relaxed (Venecia Hernandez RN) Monitor Mode: External US (Venecia Hernandez RN) FHR Baseline Rate : 120 (Venecia Hernandez RN) FHR Baseline Changes: No Baseline Change (Venecia Hernandez RN) Variability: Moderate 6-25 bpm (Venecia Hernandez RN) Accelerations: 15X15 (Venecia Hernandez RN) Decelerations: Variable (Venecia Hernandez RN) Pushing: Coached on Pushing (Venecia Hernandez RN) Pushing Position: Pushing with Contractions (Venecia Hernandez RN) Pushing Progress: Descent with Pushing; with Pushing (Venecia Hernandez RN) Stage 2 Comments: Viable female infant delivered by Dr Pickard (Venecia Hernandez RN) Stage 2 Comments: Placenta delivered and inspection by Dr Pickard (Venecia Hernandez, EMILY) Communication: RN at Bedside; RN Reviewed Strip (Venecia Hernandez RN) Datetime: 04/14/2016 20:13 Communication: Provider at Bedside (Venecia Hernandez RN) Datetime: 04/14/2016 20:07 NBP Sys/Gabby/Mean (mmHg): 136 (QS system process) : 83 (QS system process) : 101 (QS system process) Pulse: 90 (QS system process) Datetime: 04/14/2016 20:00 Stage of : Recovery (Venecia Hernandez, RN) Stage of : Labor (Venecia Hernandez, RN) Monitor Mode: External; Palpation (Venecia Hernandez, RN) Frequency (min): 1-3.5 (Venecia Hernandez, RN) Quality: Strong (Venecia Hernandez, RN) Duration (sec): 60-90 (Venecia Hernandez, RN) Pattern: Normal: <= 5 Contractions in 10 Minutes (Venecia Hernandez, RN) Resting Tone (Palpate): Relaxed (Venecia Hernandez, RN) Monitor Mode: External US (Venecia Hernandez, RN) FHR Baseline Rate : 120 (Venecia Hernandez, RN) Variability: Moderate 6-25 bpm (Venecia Hernandez, RN) Accelerations: 15X15 (Venecia Hernandez, RN) Decelerations: None (Venecia Hernandez, RN) Pain Scale: 0 (Venecia Hernandez, RN) Pain Presence: None/Denies (Venecia Hernandez, RN) Pain Type: N/A (Venecia Hernandez RN) Pushing: Coached on Pushing (Venecia Hernandez RN) Pushing Position: Pushing with Contractions (Venecia Hernandez RN) Pushing Progress: Descent with Pushing (Venecia Hernandez RN) Stage 2 Comments: RN at bedside continously monitoring FHR while pushing with patient. (Venecia Hernandez RN) Communication: RN at Bedside; RN Reviewed Strip (Venecia Hernandez RN) Datetime: 04/14/2016 19:52 NBP Sys/Gabby/Mean (mmHg): 142 (QS system process) : 89 (QS system process) : 110 (QS system process) Pulse: 90 (QS system process) LaborFlag: Labor (QS system process) Datetime: 04/14/2016 19:45 Stage of : Labor (Venecia Hernandez RN) Respirations: 18 (Venceia Hernandez RN) Monitor Mode: External; Palpation (Venecia Hernandez RN) Frequency (min): 3-4 (Venecia Hernandez RN) Quality: Moderate to Strong (Venecia Hernandez RN) Duration (sec): 40-90 (Venecia Hernandez RN) Pattern: Normal: <= 5 Contractions in 10 Minutes (Venecia Hernandez RN) Resting Tone (Palpate): Relaxed (Venecia Hernandez RN) Monitor Mode: External US (Venecia Hernandez RN) FHR Baseline Rate : 120 (Venecia Hernandez RN) Variability: Moderate 6-25 bpm (Venecia Hernandez RN) Accelerations: 15X15 (Venecia Hernandez RN) Decelerations: None (Venecia Hernandez RN) Pain Scale: 2 (Venecia Hernandez RN) Pain Presence: Intermittent (Venecia Hernandez RN) Pain Type: Pressure (Venecia Hernandez RN) Pain Location: Perineum (Venecia Hernandez RN) Pain Relief Measures: Comfort Measures (Venecia Hernandez RN) Pain Coping: Breathing Through Contractions (Venecia Hernandez RN) Comfort Measures: Breathing/Relaxation; Family Support (Venecia Hernandez RN) Communication: RN at Bedside; RN Reviewed Strip (Venecia Hernandez RN) LaborFlag: Labor (QS system process) Datetime: 04/14/2016 19:37 NBP Sys/Gabby/Mean (mmHg): 131 (QS system process) : 74 (QS system process) : 96 (QS system process) Pulse: 78 (QS system process) LaborFlag: Labor (QS system process) Datetime: 04/14/2016 19:33 Dilatation (cm): 10.0 (Venecia Hernandez, RN) Effacement (%): 100 (Venecia Hernandez, RN) Station: 2 (Venecia Hernandez, RN) Exam by: Melly Hernandez RN (Venecia Hernandez, EMILY) Vaginal Bleeding: Normal Show (Venecia Hernandez, RN) Datetime: 04/14/2016 19:30 Stage of : Labor (Venecia Hernandez RN) Monitor Mode: External; Palpation (Venecia Hernandez RN) Frequency (min): 2.5-3 (Venecia Hernandez RN) Quality: Moderate to Strong (Venecia Hernandez RN) Duration (sec): 70-90 (Venecia Hernandez, RN) Resting Tone (Palpate): Non Relaxed (Venecia Hernandez, RN) Monitor Mode: External US (Venecia Hernandez RN) FHR Baseline Rate : 115 (Venecia Hernandez, RN) Variability: Moderate 6-25 bpm (Venecia Hernandez, RN) Accelerations: 15X15 (Venecia Hernandez RN) Decelerations: None (Venecia Hernandez RN) Communication: RN at Bedside; RN Reviewed Strip (Venecia Hernandez RN) Datetime: 04/14/2016 19:22 NBP Sys/Gabby/Mean (mmHg): 128 (QS system process) : 77 (QS system process) : 96 (QS system process) Pulse: 71 (QS system process) LaborFlag: Labor (QS system process) Datetime: 04/14/2016 19:15 Monitor Mode: External; Palpation (Ashleigh Gilbert RN) Frequency (min): 1-3 (Ashleigh Gilbert RN) Quality: Mild/Moderate (Ashleigh Gilbert RN) Duration (sec): 50-60 (Ashleigh Gilbert RN) Duration Criteria: Less than Two 120 Second Contractions (Ashleigh Gilbert RN) Pattern: Normal: <= 5 Contractions in 10 Minutes (Ashleigh Gilbert RN) Resting Tone (Palpate): Relaxed (Ashleigh Gilbert RN) Monitor Mode: External US (Ashleigh Gilbert RN) FHR Baseline Rate : 115 (Ashleigh Gilbert RN) FHR Baseline Changes: No Baseline Change (Ashleigh Gilbert RN) Variability: Moderate 6-25 bpm (Ashleigh Vladimir, RN) Accelerations: 15X15 (Ashleigh Gilbert, RN) Decelerations: None (Ashleigh Gilbert, RN) Datetime: 04/14/2016 19:12 Communication Comments: report given to B. Hernandez, RN. Care relinquished (Ashleigh Gilbert, RN) Datetime: 04/14/2016 19:07 NBP Sys/Gabby/Mean (mmHg): 131 (QS system process) : 77 (QS system process) : 96 (QS system process) Pulse: 80 (QS system process) LaborFlag: Labor (QS system process) Datetime: 04/14/2016 19:00 Monitor Mode: External; Palpation (Ashleigh Gilbert RN) Frequency (min): 1.5-3 (Ashleigh Gilbert RN) Quality: Mild/Moderate (Ashleigh Gilbert RN) Duration (sec): 50-70 (Ashleigh Gilbert RN) Duration Criteria: Less than Two 120 Second Contractions (Ashleigh Gilbert RN) Pattern: Normal: <= 5 Contractions in 10 Minutes (Ashleigh Gilbert RN) Resting Tone (Palpate): Relaxed (Ashleigh Gilbert RN) Monitor Mode: External US (Ashleigh Gilbert RN) FHR Baseline Rate : 130 (Ashleigh Gilbert RN) FHR Baseline Changes: No Baseline Change (Ashleigh Gilbert RN) Variability: Moderate 6-25 bpm (Ashleigh Gilbert RN) Accelerations: None (Ashleigh Gilbert RN) Decelerations: Early (Ashleigh Gilbert RN)
[2016-04-15 07:51] LABS: HEMATOCRIT 30.2 % (36.0-47.0); HGB HCT DIFFERENCE 0.7; MEAN CORPUSCULAR HEMOGLOBIN 28.2 pg (27.0-33.4); MEAN CORPUSCULAR HGB CONC 34.1 g/dL (32.0-36.0); MEAN CORPUSCULAR VOLUME 83 fl (80-97); RED BLOOD COUNT 3.64 10^6/uL (3.72-5.28); RED CELL DISTRIBUTION WIDTH 13.8 % (11.5-14.0); WHITE BLOOD COUNT 13.8 10^3/uL (4.0-10.5)
[2016-04-15 08:05] LABS: HEMOGLOBIN 10.3 g/dL (12.0-15.5)
[2016-04-15] MEDS: FERROUS SULFATE 325 MG TABLET PO SCH ×2 (09:42→17:42)
[2016-04-15] MEDS: DOCUSATE SODIUM 100 MG CAPSULE PO SCH ×2 (09:43→17:42)
[2016-04-15] MEDS: PRENATAL VITAMIN W-O CA NO5/FE FUMARATE/FA CAPSULE PO SCH (09:43)
[2016-04-15] MEDS: SENNOSIDES/DOCUSATE 8.6-50 MG 1 EACH TABLET PO SCH (09:43)
[2016-04-15] MEDS: FAMOTIDINE 20 MG TABLET PO SCH ×2 (09:43→23:33)
--- NOTE | 2016-04-15 12:30 | PDOC PROGRESS REPORT ---
Subjective-OB Subjective: Post Delivery Day: 1 20 year old. Denies any needs at this time, voiding without difficulty, lochia is stable. pain well controlled Physical Exam (OB) Vital Signs: Temp Pulse Resp BP Pulse Ox 97.3 F 66 16 118/59 L 100 04/15/16 08:06 04/15/16 08:06 04/15/16 08:06 04/15/16 08:06 04/15/16 08:06 Intake & Output 04/14/16 04/15/16 04/16/16 06:59 06:59 06:59 Intake Total 400 Balance 400 Weight 71.4 kg - Lochia Lochia Amount: Scant < 10 ml Lochia Color: Rubra/Red - Abdomen Description: Tender, Soft Hernia Present: No Fundal Description: Firm, Midline Fundal Height: u/u - u/2 Objective-Diagnostic Laboratory: 04/15/16 07:25 04/14/16 04/15/16 11:33 07:25 WBC 13.8 H RBC 3.64 L Hgb 10.3 L D Hct 30.2 L MCV 83 MCH 28.2 MCHC 34.1 RDW 13.8 Plt Count 209 Blood Type O POSITIVE Antibody Screen NEGATIVE Assessment and Plan(PN) - Assessment and Plan (1) Vaginal delivery Is this a current diagnosis for this admission?: YesPlan: routine pp care - Time Spent with Patient Time with patient: Less than 15 minutes Critical Time spent with patient: Less than 15 minutes Medications reviewed and adjusted accordingly: Yes - Disposition Anticipated Discharge: Home Within: within 24 hours
--- NOTE | 2016-04-15 18:02 | L&D General Admission ---
General Admit Datetime Report Generated by CPN: 04/15/2016 18:00 INFORMATION Patient Age: 20 (04/14/2016 09:51:QS system process) EDC: 04/09/2016 00:00 (04/14/2016 10:05:Ashleigh Gilbert RN) : 2 (04/14/2016 10:05:Ashleigh Gilbert RN) Para: 0 (04/14/2016 10:05:Ashleigh Gilbert RN) Term: 0 (04/14/2016 10:05:Venecia Hernandez RN) : 0 (04/14/2016 10:05:Venecia Hernandez RN) Spontaneous Abortions: 0 (04/14/2016 10:05:Venecia Hernandez RN) Induced Abortions: 0 (04/14/2016 10:05:Venecia Hernandez RN) Livin (04/14/2016 10:05:SHANNON Solis) Cesareans: 0 (04/14/2016 10:05:Venecia Hernandez RN) VBACs: 0 (04/14/2016 10:05:Venecia Hernandez RN) Ectopic: 0 (04/14/2016 10:05:Venecia Hernandez RN) Multiple Births: 0 (04/14/2016 10:05:Venecia Hernandez RN) Baby, Number in Womb: 1 (04/14/2016 10:05:SHANNON Solis) CARE Primary Service Department [facility] (04/14/2016 10:05:SHANNON Solis) Month of 1st Visit: july (04/14/2016 10:05:Ashleigh Gilbert RN) Adequate Care: Yes (04/14/2016 10:05:Ashleigh Gilbert RN) Height (in): 57 (04/15/2016 08:29:QS system process) ALLERGIES Medication Allergy: No (04/14/2016 10:05:Johanny Roe RN) Medication Allergies: No Known Drug Allergies (04/14/2016) (04/14/2016 16:48:QS system process) Latex Allergy: No Latex Allergies (04/14/2016 10:05:Ashleigh Gilbert RN) Food Allergies: denies (04/14/2016 10:05:Ashleigh Gilbert RN) Environmental Allergies: denies (04/14/2016 10:05:Ashleigh Gilbert RN) COMMUNICATION Primary Language: Slovenian (04/14/2016 10:05:Ashleigh Gilbert RN) Medical Tx Preferred Language: Slovenian (04/14/2016 10:05:Ashleigh Gilbert RN) Communication Barrier(s): None (04/14/2016 10:05:SHANNON Solis) DEMOGRAPHICS Address: [address] [place] [id number] (04/14/2016 09:51:QS system process) Zipcode: [id number] (04/14/2016 09:51:QS system process) Home (04/14/2016 09:51:QS system process) N: [id number] (04/14/2016 09:51:QS system process) Next of Kin Name: BALWINDER GRAY (04/14/2016 09:51:QS system process) Next of Kin (04/14/2016 09:51:QS system process) Next of Kin Relationship: SPO (04/14/2016 09:51:QS system process) Date of : 1995 (04/14/2016 09:51:QS system process) Marital Status: (04/14/2016 09:51:QS system process) Sex: Female (04/14/2016 09:51:QS system process) Race: (04/14/2016 09:51:QS system process) Ethnicity: Non- or (04/14/2016 09:51:QS system process) Temple: Congregation (04/14/2016 09:51:QS system process) DRUG AND ALCOHOL USE Alcohol: No (04/14/2016 10:05:Ashleigh Gilbert RN) Cigarettes: Former Smoker. [id number] (04/14/2016 10:05:Ashleigh Gilbert RN) Marijuana: No (04/14/2016 10:05:Ashleigh Gilbert RN) Cocaine: No (04/14/2016 10:05:Ashleigh Gilbert RN) Other Illicit Drugs: No (04/14/2016 10:05:Ashleigh Gilbert RN) VACCINE HISTORY Influenza Vaccine: Yes (04/14/2016 10:05:Ashleigh Gilbert RN) Pneumococcal Vaccine: No (04/14/2016 10:05:Ashleigh Gilbert RN) Tetanus Vaccine: Yes (04/14/2016 10:05:Ashleigh Gilbert RN) Tdap Vaccine: Yes (04/14/2016 10:05:Ashleigh Gilbert RN) Hepatitis B Vaccine: Yes (04/14/2016 10:05:Ashleigh Gilbert RN) Family Reunification Specialist: [facility] (04/14/2016 10:05:Ashleigh Gilbert RN) Feeding Preference: Breast (04/14/2016 10:05:Ashleigh Gilbert RN) Benefit of Breast Feed Discussed: Yes (04/14/2016 10:05:Ashleigh Gilbert RN) Circumcision: N/A (04/14/2016 10:05:Ashleigh Gilbert RN) Tubal Ligation: No (04/14/2016 10:05:Ashleigh Gilbert RN) Tubal Authorization Signed: N/A (04/14/2016 10:05:Ashleigh Gilbert RN) Consent: N/A (04/14/2016 10:05:Ashleigh Gilbert RN) Consent Signed: N/A (04/14/2016 10:05:Ashleigh Gilbert RN) Pain Management Plans: Epidural (04/14/2016 10:05:Ashleigh Gilbert RN) Plans for Labor and Delivery: None (04/14/2016 10:05:Ashleigh Gilbert RN) Support Person: Balwinder Gray (04/14/2016 10:05:Ashleigh Gilbert RN) Support Person Relationship: (04/14/2016 10:05:Ashleigh Gilbert RN) Cultural/Spritual Practice: No (04/14/2016 10:05:Ashleigh Gilbert RN) Spir/Cult Dietary Needs: No (04/14/2016 10:05:Ashleigh Gilbert RN) LIVING SITUATION/DISCHARGE PLAN Living Arrangements: House (04/14/2016 10:05:Ashleigh Gilbert RN) Adequate Access to:: Electric; Heat; Refrigeration; Plumbing/Running water; Phone; Transportation (04/14/2016 10:05:Ashleigh Gilbert RN) WIC Program: No (04/14/2016 10:05:Ashleigh Gilbert RN) Discharge Automatic Pilot Mechanic Person: Balwinder Gray (04/14/2016 10:05:Ashleigh Gilbert RN) Person to Help after Discharge: Balwinder Gray (04/14/2016 10:05:Ashleigh Gilbert RN) Currently Using Commun Resources: No (04/14/2016 10:05:Ashleigh Gilbert RN) Outside Agency/Summer Associate: No (04/14/2016 10:05:Ashleigh Gilbert RN) Car Seat for Discharge: Yes (04/14/2016 10:05:Ashleigh Gilbert RN) Adoption Requested: No (04/14/2016 10:05:Ashleigh Gilbert RN) Pt Contact w/ Post : N/A (04/14/2016 10:05:Ashleigh Gilbert RN) LABS Blood Type: O Positive (04/14/2016 10:05:Johanny Roe RN) Antibody Screen: negative (04/14/2016 10:05:Johanny Roe RN) Hemoglobin: 10.3 L (04/15/2016 07:25:QS system process) Hematocrit: 30.2 L (04/15/2016 07:25:QS system process) MCV: 83 (04/15/2016 07:25:QS system process) Group Beta Strep: negative (04/14/2016 10:05:Johanny Roe RN) Gonorrhea: Negative (04/14/2016 10:05:Johanny Roe RN) Chlamydia: Negative (04/14/2016 10:05:Johanny Roe RN) RPR/VDRL: Nonreactive (04/14/2016 10:05:Johanny Roe RN) HIV Exposure Test: Negative (04/14/2016 10:05:Johanny Roe RN) Hepatitis B: Negative (04/14/2016 10:05:Johanny Roe RN) Rubella: Immune (04/14/2016 10:05:Johanny Roe RN) OB/PREVIOUS HISTORY Previous Procedures: None (04/14/2016 10:05:Venecia Hernandez RN) Current Procedures: Ultrasound; NST (04/14/2016 10:05:Ashleigh Gilbert RN) History of Previous : No (04/14/2016 10:05:Ashleigh Gilbert RN) History of Gestational Diabetes: No (04/14/2016 10:05:Ashleigh Gilbert RN) History of PIH: No (04/14/2016 10:05:Ashleigh Gilbert RN) History of Incompetent Cervix: No (04/14/2016 10:05:Ashleigh Gilbert RN) History of Placenta Previa/Abrup: No (04/14/2016 10:05:Ashleigh Gilbert RN) History of Macrosomia: No (04/14/2016 10:05:Ashleigh Gilbert RN) History of IUGR: No (04/14/2016 10:05:Ashleigh Gilbert RN) History of Hemorrhage: No (04/14/2016 10:05:Ashleigh Gilbert RN) History of Loss/Stillborn: No (04/14/2016 10:05:Ashleigh Gilbert RN) History of : No (04/14/2016 10:05:Ashleigh Gilbert RN) History of D (Rh) Sensitization: No (04/14/2016 10:05:Ashleigh Gilbert RN) History Recurrent Loss/Stillborn: No (04/14/2016 10:05:Ashleigh Gilbert RN) History Depression/PP Depression: No (04/14/2016 10:05:Ashleigh Gilbert RN) History of Uterine Anomaly/MIKE: No (04/14/2016 10:05:Ashleigh Gilbert RN) History of Infertility: No (04/14/2016 10:05:Ashleigh Gilbert RN) History of ART Treatment: No (04/14/2016 10:05:Ashleigh Gilbert RN) History of MIKE: No (04/14/2016 10:05:Ashleigh Gilbert RN) Comments Obstetrical History: G1: SAB G2: current (04/14/2016 10:05:Ashleigh Gilbert RN) MEDICAL HISTORY Med Hx Diabetes: No (04/14/2016 10:05:Ashleigh Gilbert RN) Med Hx Hypertension: No (04/14/2016 10:05:Ashleigh Gilbert RN) Med Hx Heart Disease: No (04/14/2016 10:05:Ashleigh Gilbert RN) Med Hx Autoimmune Disorder: No (04/14/2016 10:05:Ashleigh Gilbert RN) Med Hx Kidney Disease/UTI: No (04/14/2016 10:05:Ashleigh Gilbert RN) Med Hx Neurologic/Epilepsy: No (04/14/2016 10:05:Ashleigh Gilbert RN) Med Hx Psychiatric Disorders: No (04/14/2016 10:05:Ashleigh Gilbert RN) Med Hx Hepatitis/Liver Disease: No (04/14/2016 10:05:Ashleigh Gilbert RN) Med Hx Varicosities/Phlebitis: No (04/14/2016 10:05:Ashleigh Gilbert RN) Med Hx Thyroid Dysfunction: No (04/14/2016 10:05:Ashleigh Gilbert RN) Med Hx Trauma/Violence: No (04/14/2016 10:05:Ashleigh Gilbert RN) Med Hx Blood Transfusion: No (04/14/2016 10:05:Ashleigh Gilbert RN) Med Hx Pulmonary (Asthma,TB): No (04/14/2016 10:05:Ashleigh Gilbert RN) Med Hx Breast: No (04/14/2016 10:05:Ashleigh Gilbert RN) Med Hx SECURITY REP Surgery: No (04/14/2016 10:05:Ashleigh Gilbert RN) Med Hx Hospitalization/Surgery: No (04/14/2016 10:05:Ashleigh Gilbert RN) Med Hx Anesthetic Complications: No (04/14/2016 10:05:Ashleigh Gilbert RN) Med Hx Abnormal Pap Smear: No (04/14/2016 10:05:Ashleigh Gilbert RN) Other Medical Diseases: No (04/14/2016 10:05:Ashleigh Gilbert RN) Med Hx Significant Family Hx: No (04/14/2016 10:05:Ashleigh Gilbert RN) INFECTIOUS HISTORY Inf Hx Gonorrhea: No (04/14/2016 10:05:Ashleigh Gilbert RN) Inf Hx Chlamydia: No (04/14/2016 10:05:Ashleigh Gilbert RN) Inf Hx Syphilis: No (04/14/2016 10:05:Ashleigh Gilbert RN) Inf Hx HIV/AIDS: No (04/14/2016 10:05:Ashleigh Gilbert RN) Inf Hx Human Papilloma Virus: No (04/14/2016 10:05:Ashleigh Gilbert RN) Inf Hx Pt/Partner Genital Herpes: No (04/14/2016 10:05:Ashleigh Gilbert RN) Inf Hx Tuberculosis/Exposure: No (04/14/2016 10:05:Ashleigh Gilbert RN) Inf Hx Hepatitis B,C: No (04/14/2016 10:05:Ashleigh Gilbert RN) Inf Hx Rash or Viral Illness: No (04/14/2016 10:05:Ashleigh Gilbert RN) GENETIC HISTORY Gen Hx Age >=35 at BON: No (04/14/2016 10:05:Ashleigh Gilbert RN) Gen Hx Thalassemia: No (04/14/2016 10:05:Ashleigh Gilbert RN) Gen Hx Congenital Heart Defect: No (04/14/2016 10:05:Ashleigh Gilbert RN) Gen Hx Neural Tube Defect: No (04/14/2016 10:05:Ashleigh Gilbert RN) Gen Hx Down's Syndrome: No (04/14/2016 10:05:Ashleigh Gilbert RN) Gen Hx Loco-Sachs: No (04/14/2016 10:05:Ashleigh Gilbert RN) Gen Hx Volodymyr: No (04/14/2016 10:05:Ashleigh Gilbert RN) Gen Hx Familial Dysautonomia: No (04/14/2016 10:05:Ashleigh Gilbert RN) Gen Hx Sickle Cell Disease/Trait: No (04/14/2016 10:05:Ashleigh Gilbert RN) Gen Hx Hemophilia/Blood Disorder: No (04/14/2016 10:05:Ashleigh Gilbert RN) Gen Hx Muscular Dystrophy: No (04/14/2016 10:05:Ashleigh Gilbert RN) Gen Hx Cystic Fibrosis: No (04/14/2016 10:05:Ashleigh Gilbert RN) Gen Hx Huntingtons Chorea: No (04/14/2016 10:05:Ashleigh Gilbert RN) Gen Hx Mental Retardation/Autism: No (04/14/2016 10:05:Ashleigh Gilbert RN) Gen Hx Tested for Fragile X: No (04/14/2016 10:05:Ashleigh Gilbert RN) Gen Hx Other Inher/Chromosomal: No (04/14/2016 10:05:Ashleigh Gilbert RN) Gen Hx Maternal Metabolic DO: No (04/14/2016 10:05:Ashleigh Gilbert RN) Gen Hx Pt Father or FOB Defect: No (04/14/2016 10:05:Ashleigh Gilbert RN) Gen Hx Other Genetic History: No (04/14/2016 10:05:Ashleigh Gilbert RN) Gen Hx Drugs/Meds since LMP: No (04/14/2016 10:05:Ashleigh Gilbert RN)
--- NOTE | 2016-04-15 18:02 | L&D Current Admission ---
Current Admit Datetime Report Generated by CPN: 04/15/2016 18:00 ADMISSION INFORMATION Current Admit Date/Time: 04/14/2016 10:31 (04/14/2016 10:31:Ashleigh Gilbert RN) Reason for Admission: Induction of Labor (04/14/2016 10:31:Ashleigh Gilbert RN) EGA per Dates: 40.5 (04/14/2016 10:31:QS system process) Method of Arrival: Ambulatory (04/14/2016 10:31:Ashleigh Gilbert RN) Reason for Induction: Oligohydramnios (04/14/2016 10:31:Ashleigh Gilbert RN) Records Available: Yes (04/14/2016 10:31:Ashleigh Gilbert RN) General Admission Information: Reviewed (04/14/2016 10:31:Ashleigh Gilbert RN) BELONGINGS/ADVANCED DIRECTIVES Valuables/Personal Effects: Purse/Wallet; Cell Phone (04/14/2016 10:31:Ashleigh Gilbert RN) Disposition of Belongings: Kept with Patient (04/14/2016 10:31:Ashleigh Gilbert RN) Advance Direct for Healthcare: No, and Wants No Information (04/14/2016 10:31:Ashleigh Gilbert RN) Durable Power of Concrete Gun Operator: No (04/14/2016 10:31:Ashleigh Gilbert RN) Living Will: No (04/14/2016 10:31:Ashleigh Gilbert RN) Organ Donor: Yes (04/14/2016 10:31:Ashleigh Gilbert RN) Pt Rights Information Given: Yes (04/14/2016 10:31:Ashleigh Gilbert RN) Pt Understands Pt Rights: Yes (04/14/2016 10:31:Ashleigh Gilbert RN) LEARNING ASSESSMENT Knowledge Level: Understands L_D Process (04/14/2016 10:31:Ashleigh Gilbert RN) Learning Readiness: Motivated (04/14/2016 10:31:sAhleigh Gilbert RN) DOMESTIC VIOLANCE SCREENING Dom Viol Threatened/Hurt: No (04/14/2016 10:31:Ashleigh Gilbert RN) Hx of Abuse/Neglect past 2yrs: No (04/14/2016 10:31:Ashleigh Gilbert RN) Feel Unsafe Going Home: No (04/14/2016 10:31:Ashleigh Gilbert RN) Addt'l Observ Indicating Abuse: No (04/14/2016 10:31:Ashleigh Gilbert RN) Reason Unable to Complete Screen: N/A, Screen Completed (04/14/2016 10:31:Ashleigh Gilbert RN) Considered Personal Harm/Suicide: No (04/14/2016 10:31:Ashleigh Gilbert RN) NUTRITIONAL/FUNCTIONAL SCREENING Problem with Appetite >5 Days: No (04/14/2016 10:31:Ashleigh Gilbert RN) Chew/Swallow Difficulties: No (04/14/2016 10:31:Ashleigh Gilbert RN) Inappropriate Wt Gain/Loss: No (04/14/2016 10:31:Ashleigh Gilbert RN) Presence Skin Breakdown/Ulcer: No (04/14/2016 10:31:Ashleigh Gilbert RN) Special Diet: No (04/14/2016 10:31:Ashleigh Gilbert RN) Pt Requests Audit Machine Operator Visit: No (04/14/2016 10:31:Ashleigh Gilbert RN) Hx of Any of the Following?: N/A (04/14/2016 10:31:Ashleigh Gilbert RN) New Diagnosis of: N/A (04/14/2016 10:31:Ashleigh Gilbert RN) Requires Assist w/Ambulation: No (04/14/2016 10:31:Ashleigh Gilbert RN) Uses Assist Device to Ambulate: No (04/14/2016 10:31:Ashleigh Gilbert RN) Pt Requires Help w/ADL's: No (04/14/2016 10:31:Ashleigh Gilbert RN)
--- NOTE | 2016-04-15 18:16 | L&D Care Plan ---
LD CARE PLANS Datetime Report Generated by CPN: 04/15/2016 18:15 Datetime: 04/14/2016 10:05 Pain State: Risk For (Sommer Camp, RNC) Related To: Labor and Delivery Process; Treatment and Procedures; Post (Sommer Camp, RNC) Goal(s): Patients Pain will be Assessed and Managed; Patient will Verbalize Adequate Relief of Pain or the Ability to [place] with Current Pain (Sommer Camp, RNC) Interventions: Assess Pain Severity on Scale of 0 (None) to 5 (Severe); Assess Type, Location and Intensity of Pain Each Time Client Reports Discomfort and Notify Provider if Unusal Pain Develops; Encourage Proper Breathing and Relaxation Techniques; Offer Alternatives Such as Repositioning, Calm Environment, Massages, Diversional Activities, Ice Pack, Splinting, and Ambulation; Administer Analgesics as Ordered; Assist with Epidural Placement as Appropriate; Evaluate Therapeutic Effectiveness of Medication and Treatments (SHANNON Solis) Outcome: Patient will Report Absence or Relief of Pain Consistent with Established Pain Goal (SHANNON Solis) Status: Ongoing (SHANNON Solis) Outcome: Patient will have a Decrease in Signs and Symptoms of Discomfort (SHANNON Solis) Status: Ongoing (SHANNON Solis) Outcome: Pain will be Controlled During Procedures (SHANNON Solis) Anxiety State: Actual (SHANNON Solis) Related To: Labor and Delivery Process; Perceived or Actual Threat to ; Fear of Unknown; Situational Crisis; Medical Interventions; Significant Life Event (SHANNON Solis) Goal(s): Patient will have Decreased Anxiety and be able to Function at Acceptable Levels (SHANNON Solis) Interventions: Assess Verbal and Nonverbal Behavioral Indicators of Anxiety; Assist Patient to Identify and Verbalize Symptoms of Anxiety; Identify and Demonstrate Techniques to Control Anxiety; Assist Patient with Coping Mechanisms to Manage Anxiety; Provide Theraputic Touch for the Patient; Explain to Patient, Using a Calm Reassuring Approach and Nonmedical Terms, All Activities, Procedures, and Concerns; Instruct Patient and Family about Post Discharge Care, Limitations, Symptoms to Report and Resources Available (SHANNON Solis) Outcome: Patient will Identify, Verbalize and Demonstrate Techniques to Control Anxiety (SHANNON Solis) Status: Ongoing (Sommer Robles RNC) Outcome: Patient's Posture, Facial Expressions, Gestures and Activity Level will Reflect Decreased Anxiety (SHANNON Solis) Status: Ongoing (Sommer Robles, RN) Outcome: Patient will Verbalize a Sense of Control and/or Acceptance of the Situation (Sommer Robles, RNC) Status: Ongoing (Sommer Robles, RN) Outcome: Patient will Identify and Utilize Support Person (Sommer Robles RN) Status: Ongoing (Sommer Robles [facility]) Knowledge Deficit State: Actual (SHANNON Solis) Related To: Labor and Delivery Process; Treatment and Procedures; Feeding and Care; Community Resources and Available Support Mechanisms (SHANNON Solis) Goal(s): Patient will Accurately Verbalize Understanding of Plan of Care and Treatment; Patient and Family will Accurately Verbalize Understanding of the Disease Process (SHANNON Solis) Interventions: Assess Motivation and Willingness of Patient/Family to Learn; Assess Preferred Learning Mode: One to One Instruction, Reading, Videos, Group Discussion or Demonstration; Assess Barriers to Learning: Pain, Emotional State, Language Barrier, Cognitive Impairment, Visual or Hearing Deficits; Assess Patient and Family Knowledge of Disease Process, Medications and Treatment; Discuss Therapy and/or Treatment Options, Describe Rationale Behind Management, Therapy and Treatment Recommendations; Instruct Patient and Family on Signs and Symptoms to Report; Instruct Patient and Family on Medication Effects and Side Effects; Provide Appropriate and Timely Education Using Multiple Techniques; Provide Patient and Family with Support Group Information and Resources; Give Clear and Thorough Explanations and Demonstrations (SHANNON Solis) Outcome: Patient and Family will Verbalize Understanding of Condition, Treatment and Signs and Symptoms to Report (SHANNON Solis) Status: Ongoing (Sommer Robles RN) Outcome: Patient will Identify Perceived Learning Needs and Express Motivation to Learn (Sommer [place], [facility]) [facility]: [facility]) Outcome: Patient will Verbalize Understanding of Desired Content, and/or Performs Desired Skill Prior to Discharge (Sommer [place], [facility]) Status: Ongoing ([facility], [facility]) Infection State: Risk For (Sommer Robles, [facility]) Related To: Prolonged Labor or Induction; Invasive Procedures (Sommer Robles, [facility]) Goal(s): The Patient will be Free of Infection, Vital Signs Stable and Lab Work within Normal Parameters (Sommer [place], [facility]) Interventions: Instruct and Reinforce Proper Handwashing, Hygiene, and Care Techniques to Patient and Family; Monitor Vital Signs; Monitor Patient for the Following Signs of Infection: Fever, Abdominal Tenderness, Unusual Discharge; Monitor Aminiotic Fluid, Urine and Lochia for Color and Odor; Observe Wounds, Incisions and Invasive Line Sites for Redness, Drainage and Edema; Assess IV Sites per Hospital Policy; Monitor Lab and Test Results and Notify Provider of Abnormal Findings; Assess Nutritional Status and Promote Good Nutrition (Sommer Robles, [facility]) Outcome: Patient will Remain Free of Infection (Sommer [place], RN) Status: Ongoing [facility]) Outcome: Infection will be Recognized Early to Allow for Prompt Treatment (Sommer Robles, [facility]) Status: Ongoing [facility]) Outcome: Patient will have Vital Signs Within Expected Range ([facility], RN) Status: Ongoing ([facility], [facility]) Injury State: Risk For (Sommer Camp, RNC) Related To: Labor and Delivery Process (Sommer Camp, RNC) Goal(s): Patient will Remain Free from Injury (Sommer Camp, RNC) Interventions: Monitoring as per Hospital Protocol; Assess Neurological Status; Perform Risk Assessment of Patients with Induction and ; Perform Fall Risk Assessment and Prevention per Hospital Protocol; Perform DVT Risk Assessment and Prophylaxis per Hospital Protocol; Ensure that Oxygen, Suction, and Resuscitation Medications and Equipment are Readily Available; Confirm Patient ID Prior to Procedure(s) and Medication Administration per Hospital Policy (Sommer Camp, RNC) Outcome: Successful Fall Risk Prevention (Sommer Camp, RNC) Status: Ongoing (Sommer Camp, RNC) Outcome: Patient will Deliver without Adverse Sequela (Sommer Camp, RNC) Status: Ongoing (Sommer Camp, RNC) Outcome: Patient's Neurological Status will Remain Stable (Sommer Camp, RNC) Status: Ongoing (Sommer Camp, RNC) Impaired Skin Integrity State: Risk For (Sommer Camp, RNC) Related To: Vaginal Delivery; Altered Tissue Integrity; Invasive Procedures (Sommer Camp, RNC) Goal(s): Patient will Maintain Optimal Skin Integrity, Free of Breakdown, Injury or Infection (Sommer Camp, RNC) Interventions: Complete Screening for Pressure Ulcer Risk and Initiate Protocol per Hospital Policy; Monitor Site of Skin Impairment for Color Changes, Redness, Swelling, Warmth, Pain or Other Signs of Infection; Encourage and Assist with Position Changes; Monitor Patient's Mobility Status; Provide Adequate Nutrition and Fluids; Teach Patient Appropriate Hygienic Care; Teach Patient/Family Skin Care Management (Sommer Robles, EMILYC) Outcome: Patient will not have Evidence of Injury Such as Skin Breakdown, Scrapes, Cuts, or Bruising (Sommer Robles, RNC) Status: Ongoing (Sommer Robles, RNC) Outcome: Patient will Report Any Altered Sensation or Pain at Site of Skin Impairment (Sommer Robles, RNC) Status: Ongoing (Sommer Robles, RNC) Outcome: Patients Incisions and Wounds will be without Signs or Symptoms of Infection (Sommer Robles, RNC) Status: Ongoing (Sommer Robles, RNC) Outcome: Patient will Demonstrate Understanding of Plan to Heal Skin and Prevent Reinjury and Verbalize Risk Factors (Sommer Robles, EMILYC) Status: Ongoing (Sommer Robles, RNC)
--- NOTE | 2016-04-16 06:01 | L&D General Admission ---
General Admit Datetime Report Generated by CPN: 04/16/2016 06:00 INFORMATION Patient Age: 20 (04/14/2016 09:51:QS system process) EDC: 04/09/2016 00:00 (04/14/2016 10:05:Ashleigh Gilbert RN) : 2 (04/14/2016 10:05:Ashleigh Gilbert RN) Para: 0 (04/14/2016 10:05:Ashleigh Gilbert RN) Term: 0 (04/14/2016 10:05:Venecia Hernandez RN) : 0 (04/14/2016 10:05:Venecia Hernandez RN) Spontaneous Abortions: 0 (04/14/2016 10:05:Venecia Hernandez RN) Induced Abortions: 0 (04/14/2016 10:05:Venecia Hernandez RN) Livin (04/14/2016 10:05:SHANNON Solis) Cesareans: 0 (04/14/2016 10:05:Venecia Hernandez RN) VBACs: 0 (04/14/2016 10:05:Venecia Hernandez RN) Ectopic: 0 (04/14/2016 10:05:Venecia Hernandez RN) Multiple Births: 0 (04/14/2016 10:05:Venecia Hernandez RN) Baby, Number in Womb: 1 (04/14/2016 10:05:SHANNON Solis) CARE [facility] (04/14/2016 10:05:SHANNON Solis) Month of 1st Visit: july (04/14/2016 10:05:Ashleigh Gilbert RN) Adequate Care: Yes (04/14/2016 10:05:Ashleigh Gilbert RN) Height (in): 57 (04/15/2016 08:29:QS system process) ALLERGIES Medication Allergy: No (04/14/2016 10:05:Johanny Roe RN) Medication Allergies: No Known Drug Allergies (04/14/2016) (04/14/2016 16:48:QS system process) Latex Allergy: No Latex Allergies (04/14/2016 10:05:Ashliegh Gilbert RN) Food Allergies: denies (04/14/2016 10:05:Ashleigh Gilbert RN) Environmental Allergies: denies (04/14/2016 10:05:Ashleigh Gilbert RN) COMMUNICATION Primary Language: Malagasy (04/14/2016 10:05:Ashleigh Gilbert RN) Medical Tx Preferred Language: Malagasy (04/14/2016 10:05:Ashleigh Gilbert RN) Communication Barrier(s): None (04/14/2016 10:05:SHANNON Solis) DEMOGRAPHICS Address: [address] [id number] (04/14/2016 09:51:QS system process) Zipcode: [address] (04/14/2016 09:51:QS system process) Home (04/14/2016 09:51:QS system process) N: [phone] (04/14/2016 09:51:QS system process) Next of Kin Name: BALWINDER GRAY (04/14/2016 09:51:QS system process) Next of Kin (04/14/2016 09:51:QS system process) Next of Kin Relationship: SPO (04/14/2016 09:51:QS system process) Date of : 1995 (04/14/2016 09:51:QS system process) Marital Status: (04/14/2016 09:51:QS system process) Sex: Female (04/14/2016 09:51:QS system process) Race: (04/14/2016 09:51:QS system process) Ethnicity: Non- or (04/14/2016 09:51:QS system process) Pentecostal: Restorationist (04/14/2016 09:51:QS system process) DRUG AND ALCOHOL USE Alcohol: No (04/14/2016 10:05:Ashleigh Gilbert RN) Cigarettes: Former Smoker. [id number] (04/14/2016 10:05:Ashleigh Gilbert RN) Marijuana: No (04/14/2016 10:05:Ashleigh Gilbert RN) Cocaine: No (04/14/2016 10:05:Ashleigh Gilbert RN) Other Illicit Drugs: No (04/14/2016 10:05:Ashleigh Gilbert RN) VACCINE HISTORY Influenza Vaccine: Yes (04/14/2016 10:05:Ashleigh Gilbert RN) Pneumococcal Vaccine: No (04/14/2016 10:05:Ashleigh Gilbert RN) Tetanus Vaccine: Yes (04/14/2016 10:05:Ashleigh Gilbert RN) Tdap Vaccine: Yes (04/14/2016 10:05:Ashleigh Gilbert RN) Hepatitis B Vaccine: Yes (04/14/2016 10:05:Ashleigh Gilbert RN) Heat Treater Apprentice: [facility] (04/14/2016 10:05:Ashleigh Gilbert RN) Feeding Preference: Breast (04/14/2016 10:05:Ashleigh Gilbert RN) Benefit of Breast Feed Discussed: Yes (04/14/2016 10:05:Ashleigh Gilbert RN) Circumcision: N/A (04/14/2016 10:05:Ashleigh Gilbert RN) Tubal Ligation: No (04/14/2016 10:05:Ashleigh Gilbert RN) Tubal Authorization Signed: N/A (04/14/2016 10:05:Ashleigh Gilbert RN) Consent: N/A (04/14/2016 10:05:Ashleigh Gilbert RN) Consent Signed: N/A (04/14/2016 10:05:Ashleigh Gilbert RN) Pain Management Plans: Epidural (04/14/2016 10:05:Ashleigh Gilbert RN) Plans for Labor and Delivery: None (04/14/2016 10:05:Ashleigh Gilbert RN) Support Person: Balwinder Gray (04/14/2016 10:05:Ashleigh Gilbert RN) Support Person Relationship: (04/14/2016 10:05:Ashleigh Gilbert RN) Cultural/Spritual Practice: No (04/14/2016 10:05:Ashleigh Gilbert RN) Spir/Cult Dietary Needs: No (04/14/2016 10:05:Ashleigh Gilbert RN) LIVING SITUATION/DISCHARGE PLAN Living Arrangements: House (04/14/2016 10:05:Ashleigh Gilbert RN) Adequate Access to:: Electric; Heat; Refrigeration; Plumbing/Running water; Phone; Transportation (04/14/2016 10:05:Ashleigh Gilbert RN) WIC Program: No (04/14/2016 10:05:Ashleigh Gilbert RN) Discharge Sales Producer Person: Balwinder Gray (04/14/2016 10:05:Ashleigh Gilbert RN) Person to Help after Discharge: Balwinder Gray (04/14/2016 10:05:Ashleigh Gilbert RN) Currently Using Commun Resources: No (04/14/2016 10:05:Ashleigh Gilbert RN) Outside Agency/Cad Intern: No (04/14/2016 10:05:Ashleigh Gilbert RN) Car Seat for Discharge: Yes (04/14/2016 10:05:Ashleigh Gilbert RN) Adoption Requested: No (04/14/2016 10:05:Ashleigh Gilbert RN) Pt Contact w/ Post : N/A (04/14/2016 10:05:Ashleigh Gilbert RN) LABS Blood Type: O Positive (04/14/2016 10:05:Johanny Roe RN) Antibody Screen: negative (04/14/2016 10:05:Johanny Roe RN) Hemoglobin: 10.3 L (04/15/2016 07:25:QS system process) Hematocrit: 30.2 L (04/15/2016 07:25:QS system process) MCV: 83 (04/15/2016 07:25:QS system process) Group Beta Strep: negative (04/14/2016 10:05:Johanny Roe RN) Gonorrhea: Negative (04/14/2016 10:05:Johanny Roe RN) Chlamydia: Negative (04/14/2016 10:05:Johanny Roe RN) RPR/VDRL: Nonreactive (04/14/2016 10:05:Johanny Roe RN) HIV Exposure Test: Negative (04/14/2016 10:05:Johanny Roe RN) Hepatitis B: Negative (04/14/2016 10:05:Johanny Roe RN) Rubella: Immune (04/14/2016 10:05:Johanny Roe RN) OB/PREVIOUS HISTORY Previous Procedures: None (04/14/2016 10:05:Venecia Hernandez RN) Current Procedures: Ultrasound; NST (04/14/2016 10:05:Ashleigh Gilbert RN) History of Previous : No (04/14/2016 10:05:Ashleigh Gilbert RN) History of Gestational Diabetes: No (04/14/2016 10:05:Ashleigh Gilbert RN) History of PIH: No (04/14/2016 10:05:Ashleigh Gilbert RN) History of Incompetent Cervix: No (04/14/2016 10:05:Ashleigh Gilbert RN) History of Placenta Previa/Abrup: No (04/14/2016 10:05:Ashleigh Gilbert RN) History of Macrosomia: No (04/14/2016 10:05:Ashleigh Gilbert RN) History of IUGR: No (04/14/2016 10:05:Ashleigh Gilbert RN) History of Hemorrhage: No (04/14/2016 10:05:Ashleigh Gilbert RN) History of Loss/Stillborn: No (04/14/2016 10:05:Ashleigh Gilbert RN) History of : No (04/14/2016 10:05:Ashleigh Gilbert RN) History of D (Rh) Sensitization: No (04/14/2016 10:05:Ashleigh Gilbert RN) History Recurrent Loss/Stillborn: No (04/14/2016 10:05:Ashleigh Gilbert RN) History Depression/PP Depression: No (04/14/2016 10:05:Ashleigh Gilbert RN) History of Uterine Anomaly/MIKE: No (04/14/2016 10:05:Ashleigh Gilbert RN) History of Infertility: No (04/14/2016 10:05:Ashleigh Gilbert RN) History of ART Treatment: No (04/14/2016 10:05:Ashleigh Gilbert RN) History of MIKE: No (04/14/2016 10:05:Ashleigh Gilbert RN) Comments Obstetrical History: G1: SAB G2: current (04/14/2016 10:05:Ashleigh Gilbert RN) MEDICAL HISTORY Med Hx Diabetes: No (04/14/2016 10:05:Ashleigh Gilbert RN) Med Hx Hypertension: No (04/14/2016 10:05:Ashleigh Gilbert RN) Med Hx Heart Disease: No (04/14/2016 10:05:Ashleigh Gilbert RN) Med Hx Autoimmune Disorder: No (04/14/2016 10:05:Ashleigh Gilbert RN) Med Hx Kidney Disease/UTI: No (04/14/2016 10:05:Ashleigh Gilbert RN) Med Hx Neurologic/Epilepsy: No (04/14/2016 10:05:Ashleigh Gilbert RN) Med Hx Psychiatric Disorders: No (04/14/2016 10:05:Ashleigh Gilbert RN) Med Hx Hepatitis/Liver Disease: No (04/14/2016 10:05:Ashleigh Gilbert RN) Med Hx Varicosities/Phlebitis: No (04/14/2016 10:05:Ashleigh Gilbert RN) Med Hx Thyroid Dysfunction: No (04/14/2016 10:05:Ashleigh Gilbert RN) Med Hx Trauma/Violence: No (04/14/2016 10:05:Ashleigh Gilbert RN) Med Hx Blood Transfusion: No (04/14/2016 10:05:Ashleigh Gilbert RN) Med Hx Pulmonary (Asthma,TB): No (04/14/2016 10:05:Ashleigh Gilbert RN) Med Hx Breast: No (04/14/2016 10:05:Ashleigh Gilbert RN) Med Hx WELDER PRODUCTION LINE ARC Surgery: No (04/14/2016 10:05:Ashleigh Gilbert RN) Med Hx Hospitalization/Surgery: No (04/14/2016 10:05:Ashleigh Gilbert RN) Med Hx Anesthetic Complications: No (04/14/2016 10:05:Ashleigh Gilbert RN) Med Hx Abnormal Pap Smear: No (04/14/2016 10:05:Ashleigh Gilbert RN) Other Medical Diseases: No (04/14/2016 10:05:Ashleigh Gilbert RN) Med Hx Significant Family Hx: No (04/14/2016 10:05:Ashleigh Gilbert RN) INFECTIOUS HISTORY Inf Hx Gonorrhea: No (04/14/2016 10:05:Ashleigh Gilbert RN) Inf Hx Chlamydia: No (04/14/2016 10:05:Ashleigh Gilbert RN) Inf Hx Syphilis: No (04/14/2016 10:05:Ashleigh Gilbert RN) Inf Hx HIV/AIDS: No (04/14/2016 10:05:Ashleigh Gilbert RN) Inf Hx Human Papilloma Virus: No (04/14/2016 10:05:Ashleigh Gilbert RN) Inf Hx Pt/Partner Genital Herpes: No (04/14/2016 10:05:Ashleigh Gilbert RN) Inf Hx Tuberculosis/Exposure: No (04/14/2016 10:05:Ashleigh Gilbert RN) Inf Hx Hepatitis B,C: No (04/14/2016 10:05:Ashleigh Gilbert RN) Inf Hx Rash or Viral Illness: No (04/14/2016 10:05:Ashleigh Gilbert RN) GENETIC HISTORY Gen Hx Age >=35 at BON: No (04/14/2016 10:05:Ashleigh Gilbert RN) Gen Hx Thalassemia: No (04/14/2016 10:05:Ashleigh Gilbert RN) Gen Hx Congenital Heart Defect: No (04/14/2016 10:05:Ashleigh Gilbert RN) Gen Hx Neural Tube Defect: No (04/14/2016 10:05:Ashleigh Gilbert RN) Gen Hx Down's Syndrome: No (04/14/2016 10:05:Ashleigh Gilbert RN) Gen Hx Loco-Sachs: No (04/14/2016 10:05:Ashleigh Gilbert RN) Gen Hx Volodymyr: No (04/14/2016 10:05:Ashleigh Gilbert RN) Gen Hx Familial Dysautonomia: No (04/14/2016 10:05:Ashleigh Gilbert RN) Gen Hx Sickle Cell Disease/Trait: No (04/14/2016 10:05:Ashleigh Gilbert RN) Gen Hx Hemophilia/Blood Disorder: No (04/14/2016 10:05:Ashleigh Gilbert RN) Gen Hx Muscular Dystrophy: No (04/14/2016 10:05:Ashleigh Gilbert RN) Gen Hx Cystic Fibrosis: No (04/14/2016 10:05:Ashleigh Gilbert RN) Gen Hx Huntingtons Chorea: No (04/14/2016 10:05:Ashleigh Gilbert RN) Gen Hx Mental Retardation/Autism: No (04/14/2016 10:05:Ashleigh Gilbert RN) Gen Hx Tested for Fragile X: No (04/14/2016 10:05:Ashleigh Gilbert RN) Gen Hx Other Inher/Chromosomal: No (04/14/2016 10:05:Ashleigh Gilbert RN) Gen Hx Maternal Metabolic DO: No (04/14/2016 10:05:Ashleigh Gilbert RN) Gen Hx Pt Father or FOB Defect: No (04/14/2016 10:05:Ashleigh Gilbert RN) Gen Hx Other Genetic History: No (04/14/2016 10:05:Ashleigh Gilbert RN) Gen Hx Drugs/Meds since LMP: No (04/14/2016 10:05:Ashleigh Gilbert RN)
--- NOTE | 2016-04-16 06:01 | L&D Current Admission ---
Current Admit Datetime Report Generated by CPN: 04/16/2016 06:00 ADMISSION INFORMATION Current Admit Date/Time: 04/14/2016 10:31 (04/14/2016 10:31:Ashleigh Gilbert RN) Reason for Admission: Induction of Labor (04/14/2016 10:31:Ashleigh Gilbert RN) EGA per Dates: 40.5 (04/14/2016 10:31:QS system process) Method of Arrival: Ambulatory (04/14/2016 10:31:Ashleigh Gilbert RN) Reason for Induction: Oligohydramnios (04/14/2016 10:31:Ashleigh Gilbert RN) Records Available: Yes (04/14/2016 10:31:Ashleigh Gilbert RN) General Admission Information: Reviewed (04/14/2016 10:31:Ashleigh Gilbert RN) BELONGINGS/ADVANCED DIRECTIVES Valuables/Personal Effects: Purse/Wallet; Cell Phone (04/14/2016 10:31:Ashleigh Gilbert RN) Disposition of Belongings: Kept with Patient (04/14/2016 10:31:Ashleigh Gilbert RN) Advance Direct for Healthcare: No, and Wants No Information (04/14/2016 10:31:Ashleigh Gilbert RN) Durable Power of Driver Service Technician: No (04/14/2016 10:31:Ashleigh Gilbert RN) Living Will: No (04/14/2016 10:31:Ashleigh Gilbert RN) Organ Donor: Yes (04/14/2016 10:31:Ashleigh Gilbert RN) Pt Rights Information Given: Yes (04/14/2016 10:31:Ashleigh Gilbert RN) Pt Understands Pt Rights: Yes (04/14/2016 10:31:Ashleigh Gilbert RN) LEARNING ASSESSMENT Knowledge Level: Understands L_D Process (04/14/2016 10:31:Ashleigh Gilbert RN) Learning Readiness: Motivated (04/14/2016 10:31:Ashleigh Gilbert RN) DOMESTIC VIOLANCE SCREENING Dom Viol Threatened/Hurt: No (04/14/2016 10:31:Ashleigh Gilbert RN) Hx of Abuse/Neglect past 2yrs: No (04/14/2016 10:31:Ashleigh Gilbert RN) Feel Unsafe Going Home: No (04/14/2016 10:31:Ashleigh Gilbert RN) Addt'l Observ Indicating Abuse: No (04/14/2016 10:31:Ashleigh Gilbert RN) Reason Unable to Complete Screen: N/A, Screen Completed (04/14/2016 10:31:Ashleigh Gilbert RN) Considered Personal Harm/Suicide: No (04/14/2016 10:31:Ashleigh Gilbert RN) NUTRITIONAL/FUNCTIONAL SCREENING Problem with Appetite >5 Days: No (04/14/2016 10:31:Ashleigh Gilbert RN) Chew/Swallow Difficulties: No (04/14/2016 10:31:Ashleigh Gilbert RN) Inappropriate Wt Gain/Loss: No (04/14/2016 10:31:Ashleigh Gilbert RN) Presence Skin Breakdown/Ulcer: No (04/14/2016 10:31:Ashleigh Gilbert RN) Special Diet: No (04/14/2016 10:31:Ashleigh Gilbert RN) Pt Requests Box Strapper Visit: No (04/14/2016 10:31:Ashleigh Gilbert RN) Hx of Any of the Following?: N/A (04/14/2016 10:31:Ashleigh Gilbert RN) New Diagnosis of: N/A (04/14/2016 10:31:Ashleigh Gilbert RN) Requires Assist w/Ambulation: No (04/14/2016 10:31:Ashleigh Gilbert RN) Uses Assist Device to Ambulate: No (04/14/2016 10:31:Ashleigh Gilbert RN) Pt Requires Help w/ADL's: No (04/14/2016 10:31:Ashleigh Gilbert RN)
--- NOTE | 2016-04-16 06:16 | L&D Care Plan ---
LD CARE PLANS Datetime Report Generated by CPN: 04/16/2016 06:15 Datetime: 04/14/2016 10:05 Pain State: Risk For (Sommer Camp, RNC) Related To: Labor and Delivery Process; Treatment and Procedures; Post (Sommer Camp, RNC) Goal(s): Patients Pain will be Assessed and Managed; Patient will Verbalize Adequate Relief of Pain or the Ability to Ethel with Current Pain (Sommer [place], RNC) Interventions: Assess Pain Severity on Scale of 0 (None) to 5 (Severe); Assess Type, Location and Intensity of Pain Each Time Client Reports Discomfort and Notify Provider if Unusal Pain Develops; Encourage Proper Breathing and Relaxation Techniques; Offer Alternatives Such as Repositioning, Calm Environment, Massages, Diversional Activities, Ice Pack, Splinting, and Ambulation; Administer Analgesics as Ordered; Assist with Epidural Placement as Appropriate; Evaluate Therapeutic Effectiveness of Medication and Treatments (SHANNON Solis) Outcome: Patient will Report Absence or Relief of Pain Consistent with Established Pain Goal (SHANNON Solis) Status: Ongoing (SHANNON Solis) Outcome: Patient will have a Decrease in Signs and Symptoms of Discomfort (SHANNON Solis) Status: Ongoing (SHANNON Solis) Outcome: Pain will be Controlled During Procedures (SHANNON Solis) Anxiety State: Actual (SHANNON Solis) Related To: Labor and Delivery Process; Perceived or Actual Threat to ; Fear of Unknown; Situational Crisis; Medical Interventions; Significant Life Event (SHANNON Solis) Goal(s): Patient will have Decreased Anxiety and be able to Function at Acceptable Levels (SHANNON Solis) Interventions: Assess Verbal and Nonverbal Behavioral Indicators of Anxiety; Assist Patient to Identify and Verbalize Symptoms of Anxiety; Identify and Demonstrate Techniques to Control Anxiety; Assist Patient with Coping Mechanisms to Manage Anxiety; Provide Theraputic Touch for the Patient; Explain to Patient, Using a Calm Reassuring Approach and Nonmedical Terms, All Activities, Procedures, and Concerns; Instruct Patient and Family about Post Discharge Care, Limitations, Symptoms to Report and Resources Available (SHANNON Solis) Outcome: Patient will Identify, Verbalize and Demonstrate Techniques to Control Anxiety (SHANNON Solis) Status: Ongoing (Sommer Robles RNC) Outcome: Patient's Posture, Facial Expressions, Gestures and Activity Level will Reflect Decreased Anxiety (SHANNON Solis) Status: Ongoing (Sommer Robles, RN) Outcome: Patient will Verbalize a Sense of Control and/or Acceptance of the Situation (Sommer Robles, RNC) Status: Ongoing (Sommer Robles, RN) Outcome: Patient will Identify and Utilize Support Person (Sommer Robles RN) Status: Ongoing (Sommer Robles [facility]) Knowledge Deficit State: Actual (SHANNON Solis) Related To: Labor and Delivery Process; Treatment and Procedures; Feeding and Care; Community Resources and Available Support Mechanisms (SHANNON Solis) Goal(s): Patient will Accurately Verbalize Understanding of Plan of Care and Treatment; Patient and Family will Accurately Verbalize Understanding of the Disease Process (SHANNON Solis) Interventions: Assess Motivation and Willingness of Patient/Family to Learn; Assess Preferred Learning Mode: One to One Instruction, Reading, Videos, Group Discussion or Demonstration; Assess Barriers to Learning: Pain, Emotional State, Language Barrier, Cognitive Impairment, Visual or Hearing Deficits; Assess Patient and Family Knowledge of Disease Process, Medications and Treatment; Discuss Therapy and/or Treatment Options, Describe Rationale Behind Management, Therapy and Treatment Recommendations; Instruct Patient and Family on Signs and Symptoms to Report; Instruct Patient and Family on Medication Effects and Side Effects; Provide Appropriate and Timely Education Using Multiple Techniques; Provide Patient and Family with Support Group Information and Resources; Give Clear and Thorough Explanations and Demonstrations (SHANNON Solis) Outcome: Patient and Family will Verbalize Understanding of Condition, Treatment and Signs and Symptoms to Report (SHANNON Solis) Status: Ongoing (Sommer Robles RN) Outcome: Patient will Identify Perceived Learning Needs and Express Motivation to Learn ([place], [facility]) [facility]: [facility] Outcome: Patient will Verbalize Understanding of Desired Content, and/or Performs Desired Skill Prior to Discharge (S[place]mer [place], [facility]) Status: Ongoing ([facility], [facility]) Infection State: Risk For (Sommer Robles, [facility]) Related To: Prolonged Labor or Induction; Invasive Procedures (Sommer Robles, [facility]) Goal(s): The Patient will be Free of Infection, Vital Signs Stable and Lab Work within Normal Parameters (S[place]mer [place], [facility]) Interventions: Instruct and Reinforce Proper Handwashing, Hygiene, and Care Techniques to Patient and Family; Monitor Vital Signs; Monitor Patient for the Following Signs of Infection: Fever, Abdominal Tenderness, Unusual Discharge; Monitor Aminiotic Fluid, Urine and Lochia for Color and Odor; Observe Wounds, Incisions and Invasive Line Sites for Redness, Drainage and Edema; Assess IV Sites per Hospital Policy; Monitor Lab and Test Results and Notify Provider of Abnormal Findings; Assess Nutritional Status and Promote Good Nutrition (Sommer Robles, [facility]) Outcome: Patient will Remain Free of Infection ([place], RN) Status: Ongoing ([facility] Outcome: Infection will be Recognized Early to Allow for Prompt Treatment (Sommer Robles, [facility]) Status: Ongoing ([facility] Outcome: Patient will have Vital Signs Within Expected Range ([facility], RN) Status: Ongoing ([facility], [facility]) Injury State: Risk For (S[place]mer [place], RNC) Related To: Labor and Delivery Process (Sommer [place], RNC) Goal(s): Patient will Remain Free from Injury (Sommer Camp, RNC) Interventions: Monitoring as per Hospital Protocol; Assess Neurological Status; Perform Risk Assessment of Patients with Induction and ; Perform Fall Risk Assessment and Prevention per Hospital Protocol; Perform DVT Risk Assessment and Prophylaxis per Hospital Protocol; Ensure that Oxygen, Suction, and Resuscitation Medications and Equipment are Readily Available; Confirm Patient ID Prior to Procedure(s) and Medication Administration per Hospital Policy (S[place]mer [place], RNC) Outcome: Successful Fall Risk Prevention (S[place]mer [place], RNC) Status: Ongoing (Sommer Camp, RNC) Outcome: Patient will Deliver without Adverse Sequela (Sommer Camp, RNC) Status: Ongoing (S[place]mer [place], RNC) Outcome: Patient's Neurological Status will Remain Stable (Sommer Camp, RNC) Status: Ongoing (Sommer Camp, RNC) Impaired Skin Integrity State: Risk For (S[place]mer [place], RNC) Related To: Vaginal Delivery; Altered Tissue Integrity; Invasive Procedures (Sommer [place], RNC) Goal(s): Patient will Maintain Optimal Skin Integrity, Free of Breakdown, Injury or Infection (Sommer [place], RNC) Interventions: Complete Screening for Pressure Ulcer Risk and Initiate Protocol per Hospital Policy; Monitor Site of Skin Impairment for Color Changes, Redness, Swelling, Warmth, Pain or Other Signs of Infection; Encourage and Assist with Position Changes; Monitor Patient's Mobility Status; Provide Adequate Nutrition and Fluids; Teach Patient Appropriate Hygienic Care; Teach Patient/Family Skin Care Management (Sommer Robles, EMILYC) Outcome: Patient will not have Evidence of Injury Such as Skin Breakdown, Scrapes, Cuts, or Bruising (Sommer Robles, RNC) Status: Ongoing (Sommer Robles, RNC) Outcome: Patient will Report Any Altered Sensation or Pain at Site of Skin Impairment (Sommer Robles, RNC) Status: Ongoing (Sommer Robles, RNC) Outcome: Patients Incisions and Wounds will be without Signs or Symptoms of Infection (Sommer Robles, RNC) Status: Ongoing (Sommer Robles, RNC) Outcome: Patient will Demonstrate Understanding of Plan to Heal Skin and Prevent Reinjury and Verbalize Risk Factors (Sommer Robles, EMILYC) Status: Ongoing (Sommer Robles, RNC)
[2016-04-16] MEDS: IBUPROFEN 800 MG TABLET PO SCH ×2 (06:41→13:04)
[2016-04-16 08:43] VITALS: BP 121/66
[2016-04-16] MEDS: FAMOTIDINE 20 MG TABLET PO SCH (10:06)
[2016-04-16] MEDS: DOCUSATE SODIUM 100 MG CAPSULE PO SCH (10:06)
[2016-04-16] MEDS: FERROUS SULFATE 325 MG TABLET PO SCH (10:06)
[2016-04-16] MEDS: PRENATAL VITAMIN W-O CA NO5/FE FUMARATE/FA CAPSULE PO SCH (10:07)
[2016-04-16] MEDS: SENNOSIDES/DOCUSATE 8.6-50 MG 1 EACH TABLET PO SCH (10:07)
--- NOTE | 2016-04-16 12:06 | PDOC DISCHARGE SUMMARY ---
Final Diagnosis Discharge Date: 04/16/16 - Final Diagnosis (1) Vaginal delivery Is this a current diagnosis for this admission?: Yes Discharge Data - Discharge Medication Home Medications: Pnv No.122/Iron/Folic Acid [ Multi Tablet] 1 tab PO DAILY 04/14/16 Docusate Sodium [Colace 100 mg Capsule] 100 mg PO BID #60 capsule 04/16/16 Ferrous Sulfate [Feosol 325 mg Tablet] 325 mg PO BID #60 tablet 04/16/16 Ibuprofen [Motrin 800 mg Tablet] 800 mg PO Q8 #60 tablet 04/16/16 Gestational Age: 40.5 Reason(s) for Admission: Induction of Labor Procedures: NST Intrapartum Procedure(s): Spontaneous Vaginal Delivery Complication(s): Laceration-Perineal Laceration-Degree: 2nd - [place] Data Baby 1 Female at 1 minute: 8 at 5 minutes: 9 Home with Mother: Yes Complications: No - Diagnosis Test Laboratory: Temp Pulse Resp BP Pulse Ox 98.0 F 72 16 121/66 100 04/16/16 09:08 04/16/16 09:08 04/16/16 09:08 04/16/16 09:08 04/16/16 09:08 04/14/16 04/14/16 04/15/16 10:02 11:33 07:25 RBC 4.31 3.64 L Hgb 12.4 10.3 L D Hct 35.6 L 30.2 L Urine Opiates Screen NEGATIVE - Discharge information/Instructions Discharge Activity: Activity As Tolerated, Balance Activity w/Rest, No Lifting Over 10 Pounds, No Lifting/Push/Pulling, Pelvic Rest, Slowly Increase Activity Discharge Diet: Regular Disposition: HOME, SELF-CARE Follow up with: [facility] in: 4, Weeks
--- NOTE | 2016-04-18 15:25 | Delivery Summary ---
Del Sum A-C Datetime Report Generated by CPN: 04/18/2016 15:25 ADMISSION DATA Chief Complaint: Scheduled Induction of Labor Indication for Induction: Post Dates; Oligohydramnios Admission Impression: Postterm, Intrauterine ; No Active Labor; Intact Membranes DELIVERY PERSONNEL Delivery Doctor:: Avni Pickard DO Labor and Delivery Nurse:: Venecia Hernandez RNforder operator Nurse:: Josefina Hernandez RN Funeral Home Director/MITCHEL: [facility] Additional Personnel: : Bear William, MATERIAL CONTROL CLERK MATERNAL INFORMATION Delivery Anesthesia: Epidural Medications After Delivery: Pitocin Bolus-Please Comment; Pitocin Drip 20 Units/1000ml NSS Estimated Blood Loss (ml): 250 Maternal Complications: None Provider Comments: of viable female in MARY position Placenta delievered spontaneous and intact with 3v cord Fundus Firm LABOR SUMMARY EDC: 04/09/2016 00:00 No. Babies in Womb: 1 Labor Anesthesia: Epidural LABOR INFORMATION Reason for Induction: Oligohydramnios Onset of Labor: 04/14/2016 17:42 Complete Dilatation: 04/14/2016 19:33 Cervical Ripening Agents: Cytotec @ Group B Beta Strep: negative Steroids Given: None Reason Steroids Not Administered: Not Applicable MEMBRANES Membranes Rupture Method: Spontaneous STAGES OF LABOR Stage 1 hr: 1 Stage 1 min: 51 Stage 2 hr: 0 Stage 2 min: 43 Stage 3 hr: 0 Stage 3 min: 2 Total Time in Labor hr: 2 Total Time in Labor min: 36 VAGINAL DELIVERY Laceration Extension: Second Degree Laceration Type: Perineal Laceration Repair Note: repaired with 2-0 chromic in usual fashion with good hemostasis Sponge Count Correct: Yes Sharps Count Correct: Yes BABY A INFORMATION Delivery Date/Time: 04/14/2016 20:16 Method of Delivery: Vaginal Born in Route : No : N/A Forceps: N/A Vacuum Extraction: N/A Shoulder Dystocia : No PRESENTATION/POSITION BABY A Presentation: Cephalic Cephalic Presentation: Vertex Vertex Position: Left Occipital Anterior Breech Presentation: [place] PLACENTA INFORMATION BABY A Placenta Delivery Time : 04/14/2016 20:18 Placenta Method of Delivery: Spontaneous Placenta Status: Delivered SCORES BABY A Heart Rate 1 min: >100 bpm Resp Effort 1 min: Good Cry Reflex Irritability 1 min: Cough or Sneeze or Pulls Away Muscle Tone 1 min: Some Flexion of Extremities Color 1 min: Body [place], Extremities Blue SCORE 1 MIN: 8 Heart Rate 5 min: >100 bpm Resp Effort 5 min: Good Cry Reflex Irritability 5 min: Cough or Sneeze or Pulls Away Muscle Tone 5 min: Active Motion Color 5 min: Body [place], Extremities Blue SCORE 5 MIN: 9 INFORMATION BABY A Gestational Age at Delivery: 40.5 Gestational Status: Full Term- 39- 40.6 Weeks Outcome : Liveborn Condition : Stable Sex: Female IDENTIFICATION BABY A Infant Verification Date/Time: 04/14/2016 20:25 ID Band Number: [id number] Mother's Name Verified: Yes RN Verifying Infant: R Pop, RNC Additional Verifying Personnel: D William, US WEIGHT/LENGTH BABY A Birthweight (gm): 3005 Weight (lb): 6 Weight (oz): 10 Infant Length (in): 19.00 Infant Length (cm): 48.26 CORD INFORMATION BABY A No. Cord Vessels: 3 Nuchal Cord : N/A Cord Blood Taken: Yes-For Eval (Mom's Blood Type - or O+) Suction: Mouth; Nose ASSESSMENT BABY A Infant Complications: None Physical Findings at Delivery: Within Normal Limits Respirations: Appears Normal Skin to Skin: Yes Skin to Skin Time (min): 60 Steel Layout Worker/ALS Called : No Care By: Franny Hernandez RN Transferred To: Remains with Mother SIGNATURES Signature: with User ID: [email or web address]
--- NOTE | 2016-04-19 06:01 | L&D General Admission ---
General Admit Datetime Report Generated by CPN: 04/19/2016 06:00 INFORMATION Patient Age: 20 (04/14/2016 09:51:QS system process) EDC: 04/09/2016 00:00 (04/14/2016 10:05:Ashleigh Gilbert RN) : 2 (04/14/2016 10:05:Ashleigh Gilbert RN) Para: 0 (04/14/2016 10:05:Ashleigh Gilbert RN) Term: 0 (04/14/2016 10:05:Venecia Hernandez RN) : 0 (04/14/2016 10:05:Venecia Hernandez RN) Spontaneous Abortions: 0 (04/14/2016 10:05:Venecia Hernandez RN) Induced Abortions: 0 (04/14/2016 10:05:Venecia Hernandez RN) Livin (04/14/2016 10:05:SHANNON Solis) Cesareans: 0 (04/14/2016 10:05:Venecia Hernandez RN) VBACs: 0 (04/14/2016 10:05:Venecia Hernandez RN) Ectopic: 0 (04/14/2016 10:05:Venecia Hernandez RN) Multiple Births: 0 (04/14/2016 10:05:Venecia Hernandez RN) Baby, Number in Womb: 1 (04/14/2016 10:05:SHANNON Solis) CARE Primary Contracts Analyst: [facility] (04/14/2016 10:05:SHANNON Solis) Month of 1st Visit: july (04/14/2016 10:05:Ashleigh Gilbert RN) Adequate Care: Yes (04/14/2016 10:05:Ashleigh Gilbert RN) Height (in): 57 (04/16/2016 12:06:QS system process) ALLERGIES Medication Allergy: No (04/14/2016 10:05:Johanny Roe RN) Medication Allergies: No Known Drug Allergies (04/14/2016) (04/14/2016 16:48:QS system process) Latex Allergy: No Latex Allergies (04/14/2016 10:05:Ashleigh Gilbert RN) Food Allergies: denies (04/14/2016 10:05:Ashleigh Gilbert RN) Environmental Allergies: denies (04/14/2016 10:05:Ashleigh Gilbert RN) COMMUNICATION Primary Language: Northern Irish (04/14/2016 10:05:Ashleigh Gilbert RN) Medical Tx Preferred Language: Northern Irish (04/14/2016 10:05:Ashleigh Gilbert RN) Communication Barrier(s): None (04/14/2016 10:05:SHANNON Solis) DEMOGRAPHICS Address: [address] [place] [id number] (04/14/2016 09:51:QS system process) Zipcode: [address] (04/14/2016 09:51:QS system process) Home (04/14/2016 09:51:QS system process) N: [phone] (04/14/2016 09:51:QS system process) Next of Kin Name: BALWINDER GRAY (04/14/2016 09:51:QS system process) Next of Kin (04/14/2016 09:51:QS system process) Next of Kin Relationship: SPO (04/14/2016 09:51:QS system process) Date of : 1995 (04/14/2016 09:51:QS system process) Marital Status: (04/14/2016 09:51:QS system process) Sex: Female (04/14/2016 09:51:QS system process) Race: (04/14/2016 09:51:QS system process) Ethnicity: Non- or (04/14/2016 09:51:QS system process) Orthodoxy: Sikhism (04/14/2016 09:51:QS system process) DRUG AND ALCOHOL USE Alcohol: No (04/14/2016 10:05:Ashleigh Gilbert RN) Cigarettes: Former Smoker. [id number] (04/14/2016 10:05:Ashleigh Gilbert RN) Marijuana: No (04/14/2016 10:05:Ashleigh Gilbert RN) Cocaine: No (04/14/2016 10:05:Ashleigh Gilbert RN) Other Illicit Drugs: No (04/14/2016 10:05:Ashleigh Gilbert RN) VACCINE HISTORY Influenza Vaccine: Yes (04/14/2016 10:05:Ashleigh Gilbert RN) Pneumococcal Vaccine: No (04/14/2016 10:05:Ashleigh Gilbert RN) Tetanus Vaccine: Yes (04/14/2016 10:05:Ashleigh Gilbert RN) Tdap Vaccine: Yes (04/14/2016 10:05:Ashleigh Gilbert RN) Hepatitis B Vaccine: Yes (04/14/2016 10:05:Ashleigh Gilbert RN) Fire Information Officer: [facility] (04/14/2016 10:05:Ashleigh Gilbert RN) Feeding Preference: Breast (04/14/2016 10:05:Ashleigh Gilbert RN) Benefit of Breast Feed Discussed: Yes (04/14/2016 10:05:Ashleigh Gilbert RN) Circumcision: N/A (04/14/2016 10:05:Ashleigh Gilbert RN) Tubal Ligation: No (04/14/2016 10:05:Ashleigh Gilbert RN) Tubal Authorization Signed: N/A (04/14/2016 10:05:Ashleigh Gilbert RN) Consent: N/A (04/14/2016 10:05:Ashleigh Gilbert RN) Consent Signed: N/A (04/14/2016 10:05:Ashleigh Gilbert RN) Pain Management Plans: Epidural (04/14/2016 10:05:Ashleigh Gilbert RN) Plans for Labor and Delivery: None (04/14/2016 10:05:Ashleigh Gilbert RN) Support Person: Balwinder Gray (04/14/2016 10:05:Ashleigh Gilbert RN) Support Person Relationship: (04/14/2016 10:05:Ashleigh Gilbert RN) Cultural/Spritual Practice: No (04/14/2016 10:05:Ashleigh Gilbert RN) Spir/Cult Dietary Needs: No (04/14/2016 10:05:Ashleigh Gilbert RN) LIVING SITUATION/DISCHARGE PLAN Living Arrangements: House (04/14/2016 10:05:Ashleigh Gilbert RN) Adequate Access to:: Electric; Heat; Refrigeration; Plumbing/Running water; Phone; Transportation (04/14/2016 10:05:Ashleigh Gilbert RN) WIC Program: No (04/14/2016 10:05:Ashleigh Gilbert RN) Discharge Acid Supervisor Person: Balwinder Gray (04/14/2016 10:05:Ashleigh Gilbert RN) Person to Help after Discharge: Balwinder Gray (04/14/2016 10:05:Ashleigh Gilbert RN) Currently Using Commun Resources: No (04/14/2016 10:05:Ashleigh Gilbert RN) Outside Agency/Explosive Man: No (04/14/2016 10:05:Ashleigh Gilbert RN) Car Seat for Discharge: Yes (04/14/2016 10:05:Ashleigh Gilbert RN) Adoption Requested: No (04/14/2016 10:05:Ashleigh Gilbert RN) Pt Contact w/ Post : N/A (04/14/2016 10:05:Ashleigh Gilbert RN) LABS Blood Type: O Positive (04/14/2016 10:05:Johanny Roe RN) Antibody Screen: negative (04/14/2016 10:05:Johanny Roe RN) Hemoglobin: 10.3 L (04/15/2016 07:25:QS system process) Hematocrit: 30.2 L (04/15/2016 07:25:QS system process) MCV: 83 (04/15/2016 07:25:QS system process) Group Beta Strep: negative (04/14/2016 10:05:Johanny Roe RN) Gonorrhea: Negative (04/14/2016 10:05:Johanny Roe RN) Chlamydia: Negative (04/14/2016 10:05:Johanny Roe RN) RPR/VDRL: Nonreactive (04/14/2016 10:05:Johanny Roe RN) HIV Exposure Test: Negative (04/14/2016 10:05:Johanny Roe RN) Hepatitis B: Negative (04/14/2016 10:05:Johanny oRe RN) Rubella: Immune (04/14/2016 10:05:Johanny Roe RN) OB/PREVIOUS HISTORY Previous Procedures: None (04/14/2016 10:05:Venecia Hernandez RN) Current Procedures: Ultrasound; NST (04/14/2016 10:05:Ashleigh Gilbert RN) History of Previous : No (04/14/2016 10:05:Ashleigh Gilbert RN) History of Gestational Diabetes: No (04/14/2016 10:05:Ashleigh Gilbert RN) History of PIH: No (04/14/2016 10:05:Ashleihg Gilbert RN) History of Incompetent Cervix: No (04/14/2016 10:05:Ashleigh Gilbert RN) History of Placenta Previa/Abrup: No (04/14/2016 10:05:Ashleigh Gilbert RN) History of Macrosomia: No (04/14/2016 10:05:Ashleigh Gilbert RN) History of IUGR: No (04/14/2016 10:05:Ashleigh Gilbert RN) History of Hemorrhage: No (04/14/2016 10:05:Ashleigh Gilbert RN) History of Loss/Stillborn: No (04/14/2016 10:05:Ashleigh Gilbert RN) History of : No (04/14/2016 10:05:Ashleigh Gilbert RN) History of D (Rh) Sensitization: No (04/14/2016 10:05:Ashleigh Gilbert RN) History Recurrent Loss/Stillborn: No (04/14/2016 10:05:Ashleigh Gilbert RN) History Depression/PP Depression: No (04/14/2016 10:05:Ashleigh Gilbert RN) History of Uterine Anomaly/MIKE: No (04/14/2016 10:05:Ashleigh Gilbert RN) History of Infertility: No (04/14/2016 10:05:Ashleigh Gilbert RN) History of ART Treatment: No (04/14/2016 10:05:Ashleigh Gilbert RN) History of MIKE: No (04/14/2016 10:05:Ashleigh Gilbert RN) Comments Obstetrical History: G1: SAB G2: current (04/14/2016 10:05:Ashleigh Gilbert RN) MEDICAL HISTORY Med Hx Diabetes: No (04/14/2016 10:05:Ashleigh Gilbert RN) Med Hx Hypertension: No (04/14/2016 10:05:Ashleigh Gilbert RN) Med Hx Heart Disease: No (04/14/2016 10:05:Ashleigh Gilbert RN) Med Hx Autoimmune Disorder: No (04/14/2016 10:05:Ashleigh Gilbert RN) Med Hx Kidney Disease/UTI: No (04/14/2016 10:05:Ashleigh Gilbert RN) Med Hx Neurologic/Epilepsy: No (04/14/2016 10:05:Ashleigh Gilbert RN) Med Hx Psychiatric Disorders: No (04/14/2016 10:05:Ashleigh Gilbert RN) Med Hx Hepatitis/Liver Disease: No (04/14/2016 10:05:Ashleigh Gilbert RN) Med Hx Varicosities/Phlebitis: No (04/14/2016 10:05:Ashleigh Gilbert RN) Med Hx Thyroid Dysfunction: No (04/14/2016 10:05:Ashleigh Gilbert RN) Med Hx Trauma/Violence: No (04/14/2016 10:05:Ashleigh Gilbert RN) Med Hx Blood Transfusion: No (04/14/2016 10:05:Ashleigh Gilbert RN) Med Hx Pulmonary (Asthma,TB): No (04/14/2016 10:05:Ashleigh Gilbert RN) Med Hx Breast: No (04/14/2016 10:05:Ashleigh Gilbert RN) Med Hx CUSHION WORKER Surgery: No (04/14/2016 10:05:Ashleigh Gilbert RN) Med Hx Hospitalization/Surgery: No (04/14/2016 10:05:Ashleigh Gilbert RN) Med Hx Anesthetic Complications: No (04/14/2016 10:05:Ashleigh Gilbert RN) Med Hx Abnormal Pap Smear: No (04/14/2016 10:05:Ashleigh Gilbert RN) Other Medical Diseases: No (04/14/2016 10:05:Ashleigh Gilbert RN) Med Hx Significant Family Hx: No (04/14/2016 10:05:Ashleigh Gilbert RN) INFECTIOUS HISTORY Inf Hx Gonorrhea: No (04/14/2016 10:05:Ashleigh Gilbert RN) Inf Hx Chlamydia: No (04/14/2016 10:05:Ashleigh Gilbert RN) Inf Hx Syphilis: No (04/14/2016 10:05:Ashleigh Gilbert RN) Inf Hx HIV/AIDS: No (04/14/2016 10:05:Ashleigh Gilbert RN) Inf Hx Human Papilloma Virus: No (04/14/2016 10:05:Ashleigh Gilbert RN) Inf Hx Pt/Partner Genital Herpes: No (04/14/2016 10:05:Ashleigh Gilbert RN) Inf Hx Tuberculosis/Exposure: No (04/14/2016 10:05:Ashleigh Gilbert RN) Inf Hx Hepatitis B,C: No (04/14/2016 10:05:Ashleigh Gilbert RN) Inf Hx Rash or Viral Illness: No (04/14/2016 10:05:Ashleigh Gilbert RN) GENETIC HISTORY Gen Hx Age >=35 at BON: No (04/14/2016 10:05:Ashleigh Gilbert RN) Gen Hx Thalassemia: No (04/14/2016 10:05:Ashleigh Gilbert RN) Gen Hx Congenital Heart Defect: No (04/14/2016 10:05:Ashleigh Gilbert RN) Gen Hx Neural Tube Defect: No (04/14/2016 10:05:Ashleigh Gilbert RN) Gen Hx Down's Syndrome: No (04/14/2016 10:05:Ashleigh Gilbert RN) Gen Hx Loco-Sachs: No (04/14/2016 10:05:Ashleigh Gilbert RN) Gen Hx Volodymyr: No (04/14/2016 10:05:Ashleigh Gilbert RN) Gen Hx Familial Dysautonomia: No (04/14/2016 10:05:Ashleigh Gilbert RN) Gen Hx Sickle Cell Disease/Trait: No (04/14/2016 10:05:Ashleigh Gilbert RN) Gen Hx Hemophilia/Blood Disorder: No (04/14/2016 10:05:Ashleigh Gilbert RN) Gen Hx Muscular Dystrophy: No (04/14/2016 10:05:Ashleigh Gilbert RN) Gen Hx Cystic Fibrosis: No (04/14/2016 10:05:Ashleigh Gilbert RN) Gen Hx Huntingtons Chorea: No (04/14/2016 10:05:Ashleigh Gilbert RN) Gen Hx Mental Retardation/Autism: No (04/14/2016 10:05:Ashleigh Gilbert RN) Gen Hx Tested for Fragile X: No (04/14/2016 10:05:Ashleigh Gilbert RN) Gen Hx Other Inher/Chromosomal: No (04/14/2016 10:05:Ashleigh Gilbert RN) Gen Hx Maternal Metabolic DO: No (04/14/2016 10:05:Ashleigh Gilbert RN) Gen Hx Pt Father or FOB Defect: No (04/14/2016 10:05:Ashleigh Gilbert RN) Gen Hx Other Genetic History: No (04/14/2016 10:05:Ashleigh Gilbert RN) Gen Hx Drugs/Meds since LMP: No (04/14/2016 10:05:Ashleigh Gilbert RN)
--- NOTE | 2016-04-19 06:01 | L&D Current Admission ---
Current Admit Datetime Report Generated by CPN: 04/19/2016 06:00 ADMISSION INFORMATION Current Admit Date/Time: 04/14/2016 10:31 (04/14/2016 10:31:Ashleigh Gilbert RN) Reason for Admission: Induction of Labor (04/14/2016 10:31:Ashleigh Gilbert RN) EGA per Dates: 40.5 (04/14/2016 10:31:QS system process) Method of Arrival: Ambulatory (04/14/2016 10:31:Ashleigh Gilbert RN) Reason for Induction: Oligohydramnios (04/14/2016 10:31:Ashleigh Gilbert RN) Records Available: Yes (04/14/2016 10:31:Ashleigh Gilbert RN) General Admission Information: Reviewed (04/14/2016 10:31:Ashleigh Gilbert RN) BELONGINGS/ADVANCED DIRECTIVES Valuables/Personal Effects: Purse/Wallet; Cell Phone (04/14/2016 10:31:Ashleigh Gilbert RN) Disposition of Belongings: Kept with Patient (04/14/2016 10:31:Ashleigh Gilbert RN) Advance Direct for Healthcare: No, and Wants No Information (04/14/2016 10:31:Ashleigh Gilbert RN) Durable Power of Aquatic Instructor: No (04/14/2016 10:31:Ashleigh Gilbert RN) Living Will: No (04/14/2016 10:31:Ashleigh Gilbert RN) Organ Donor: Yes (04/14/2016 10:31:Ashleigh Gilbert RN) Pt Rights Information Given: Yes (04/14/2016 10:31:Ashleigh Gilbert RN) Pt Understands Pt Rights: Yes (04/14/2016 10:31:Ashleigh Gilbert RN) LEARNING ASSESSMENT Knowledge Level: Understands L_D Process (04/14/2016 10:31:Ashleigh Gilbert RN) Learning Readiness: Motivated (04/14/2016 10:31:Ashleigh Gilbert RN) DOMESTIC VIOLANCE SCREENING Dom Viol Threatened/Hurt: No (04/14/2016 10:31:Ashleigh Gilbert RN) Hx of Abuse/Neglect past 2yrs: No (04/14/2016 10:31:Ashleigh Gilbert RN) Feel Unsafe Going Home: No (04/14/2016 10:31:Ashleigh Gilbert RN) Addt'l Observ Indicating Abuse: No (04/14/2016 10:31:Ashleigh Gilbert RN) Reason Unable to Complete Screen: N/A, Screen Completed (04/14/2016 10:31:Ashleigh Gilbert RN) Considered Personal Harm/Suicide: No (04/14/2016 10:31:Ashleigh Gilbert RN) NUTRITIONAL/FUNCTIONAL SCREENING Problem with Appetite >5 Days: No (04/14/2016 10:31:Ashleigh Gilbert RN) Chew/Swallow Difficulties: No (04/14/2016 10:31:Ashleigh Gilbert RN) Inappropriate Wt Gain/Loss: No (04/14/2016 10:31:Ashleigh Gilbert RN) Presence Skin Breakdown/Ulcer: No (04/14/2016 10:31:Ashleigh Gilbert RN) Special Diet: No (04/14/2016 10:31:Ashleigh Gilbert RN) Pt Requests Clinical Asst Visit: No (04/14/2016 10:31:Ashleigh Gilbert RN) Hx of Any of the Following?: N/A (04/14/2016 10:31:Ashleigh Gilbert RN) New Diagnosis of: N/A (04/14/2016 10:31:Ashleigh Gilbert RN) Requires Assist w/Ambulation: No (04/14/2016 10:31:Ashleigh Gilbert RN) Uses Assist Device to Ambulate: No (04/14/2016 10:31:Ashleigh Gilbert RN) Pt Requires Help w/ADL's: No (04/14/2016 10:31:Ashleigh Gilbert RN)
== END 2016-04-16 13:18 | disposition home or self-care (01) | DRG 775 ==
LOC: LC 09:51 → LR 09:59 → 2S 22:28
PROVIDERS: ADMIT Obstetrics & Gynecology; ATTEND Obstetrics & Gynecology
PROC: 10E0XZZ Delivery of Products of Conception, External Approach (ICD-10-PCS; principal; 2016-04-14)
PROC: 0KQM0ZZ Repair Perineum Muscle, Open Approach (ICD-10-PCS; 2016-04-14)
PROC: 3E0P7GC Introduction of Other Therapeutic Substance into Female Reproductive, Via Natural or Artificial Opening (ICD-10-PCS; 2016-04-14)
PROC: 4A1HXCZ Monitoring of Products of Conception, Cardiac Rate, External Approach (ICD-10-PCS; 2016-04-14)
DX: O41.03X0 Oligohydramnios, third trimester, not applicable or unspecified (principal); O48.0 Post-term pregnancy; O70.1 Second degree perineal laceration during delivery; F17.210 Nicotine dependence, cigarettes, uncomplicated; Z88.6 Allergy status to analgesic agent; Z3A.40 40 weeks gestation of pregnancy; Z37.0 Single live birth
CPT/HCPCS: 36415; 80307; 81005; 85025; 85027; 86592; 86850; 86900; 86901; J2300; J2590; J3490

== ENCOUNTER 2016-11-11 04:17 | Emergency (ER) | payer OTHER ==
[2016-11-11 04:24] VITALS: BP 127/71
--- NOTE | 2016-11-11 05:05 | ER Document Report ---
HPI - HPI Pain Level: 5 Notes: Patient is a 22-year-old female who presents ED complaining of left ear pain and swelling 4 days along with nasal faina/discharge. Patient states that she was seen by her PCM and started on amoxicillin and Ciprodex 2 days ago, but her symptoms have been worsening. Pt states that her hearing is decreasing and she is starting to feel pain in the left jaw radiating down from the ear. She is still eating and drinking otherwise without any difficulties. She denies any drug allergies or other significant past medical history. She has been also taking Percocet that was prescribed to her by her PCM for pain with minimal relief. Her PCM wanted her to come to the ED for evaluation. Denies any headache, fever, neck pain, URI, sore throat, chest pain, palpitations, syncope , cough, shortness of breath, wheeze, dyspnea, abdominal pain, nausea/vomiting/ diarrhea, or rash. - ROS Notes: REVIEW OF SYSTEMS: CONSTITUTIONAL : Denies fever, chills, or sweats. Denies recent illness. EENT: see hpi. No eye complaints. CARDIOVASCULAR: Denies chest pain. Denies palpitations or racing or irregular heart beat. Denies ankle edema. RESPIRATORY: Denies cough, cold, or chest congestion. Denies shortness of breath, difficulty breathing, or wheezing. GASTROINTESTINAL: Denies abdominal pain or distention. Denies nausea, vomiting , or diarrhea. Denies blood in vomitus, stools, or per rectum. Denies black, tarry stools. Denies constipation. GENITOURINARY: Denies difficulty urinating, painful urination, burning, frequency, blood in urine, or discharge. MUSCULOSKELETAL: Denies back or neck pain or stiffness. Denies joint pain or swelling. SKIN: Denies rash, lesions or sores. NEUROLOGICAL: Denies confusion or altered mental status. Denies passing out or loss of consciousness. Denies dizziness or lightheadedness. Denies headache. Denies weakness or paralysis or loss of use of either side. Denies problems with gait or speech. Denies sensory loss, numbness, or tingling. ALL OTHER SYSTEMS REVIEWED AND NEGATIVE. Dictation was performed using [employer] voice recognition software - CARDIOVASCULAR Cardiovascular: DENIES: Chest pain - DERM Skin Color: Normal Past Medical History - Social History Smoking Status: Never Smoker Chew tobacco use (# tins/day): No Frequency of alcohol use: None Drug Abuse: None Family History: CAD, Hyperlipidemia, Hypertension Patient has suicidal ideation: No Patient has homicidal ideation: No Renal/ Medical History: Denies: Hx Peritoneal Dialysis Surgical Hx: Negative Vertical Provider Document - CONSTITUTIONAL Agree With Documented VS: Yes Notes: PHYSICAL EXAMINATION: GENERAL: Well-appearing, well-nourished and in no acute distress. HEAD: Atraumatic, normocephalic. EYES: Pupils equal round and reactive to light, extraocular movements intact, sclera anicteric, conjunctiva are normal. ENT: Rt EAC wnl. Lt EAC swollen with whitish color discharge. Lt TM not visualized. Rt TM intact b/l without erythema, fluid, or perforation. Nares patent with clear discharge. oropharynx clear without exudates. No tonsilar hypertrophy or erythema. Moist mucous membranes. No sinus tenderness. Uvula midline. No palatine shift. No tongue protrusion. No respiratory compromise. No sinus tenderness or facial swelling. No mastoid tenderness. NECK: Normal range of motion, supple without lymphadenopathy. No rigidity/ meningismus. LUNGS: Breath sounds clear to auscultation bilaterally and equal. No wheezes rales or rhonchi. HEART: Regular rate and rhythm without murmurs, rubs, gallops. NEUROLOGICAL: Cranial nerves grossly intact. Normal speech, normal gait. Normal sensory, motor exams PSYCH: Normal mood, normal affect. SKIN: Warm, Dry, normal turgor, no rashes or lesions noted. - INFECTION CONTROL TRAVEL OUTSIDE OF THE [place] IN LAST 30 DAYS: No - RESPIRATORY O2 Sat by Pulse Oximetry: 99 Course - Re-evaluation Re-evalutation: 11/11/16 05:30 Patient is an afebrile, well-hydrated, 21-year-old female who presents to the ED with acute otitis externa of the left ear. Vitals are stable. PE otherwise unremarkable. Low suspicion/risk for any mastoiditis, sepsis, meningitis, deep space infection, peritonsillar/pharyngeal abscess, or other systemic emergent condition at this time. Patient is aware that her condition can change from initial presentation and she needs to monitor symptoms closely and seek medical attention if any acute changes. Ear cultures were obtained. A wick was placed without any complications. She is to continue her amoxicillin and Ciprodex as directed. Recheck with your PCM in 2-3 days. Pt already has the drops. I will send her home with zofran as patient states she becomes nauseated with the pain medication. Consider consult with ENT for ongoing/worsening symptoms. Return to the ED with any worsening/concerning symptoms otherwise as reviewed in discharge. Call for culture results in 2 days. Patient is in agreement. - Vital Signs Vital signs: Temp Pulse Resp BP Pulse Ox 98.5 F 94 18 127/71 H 99 11/11/16 04:21 11/11/16 04:21 11/11/16 04:21 11/11/16 04:11/11/16 04:21 Procedures - Additional Procedures ear wick Time performed: 05:20 Notes: 11/11/16 05:13 ear wick placement, no complications Discharge - Discharge Clinical Impression: Otitis externa Qualifiers: Otitis externa type: unspecified type Chronicity: acute Laterality: left Qualified Code(s): H60.502 - Unspecified acute noninfective otitis externa, left ear Condition: Stable Disposition: HOME, SELF-CARE Instructions: Antinausea Medication ([facility]), Using Ear Drops with a Wick ([facility]), Otitis Externa ([facility]) Additional Instructions: Maintain adequate fluid intake Take meds as directed tylenol/ibuprofen as needed over the counter cold medication as needed for symptoms F/u: with your PCM in 2-3 days for a recheck Schedule a f/u with ENT for ongoing/worsening symptoms Call in 2 days for your ear culture results Return to the ED with any fever, worsening pain, chest pain, palpitations, syncope, worsening AVELAR, neck pain/stiffness, shortness of breath, wheezing, drooling, trouble swallowing/breathing, abdominal pain, n/v/d, rash, or worsening/concerning symptoms otherwise. Prescriptions: Ondansetron [Zofran Odt 4 mg Tablet] 1 - 2 tab PO Q4H PRN #15 tab.rapdis PRN Reason: For Nausea/Vomiting Forms: Elevated Blood Pressure [facility] - Follow up in 3-5 days
[2016-11-11] MEDS ORDERED: ONDANSETRON 4 MG TAB.RAPDIS PO ONE (05:22)
== END 2016-11-11 05:50 | disposition home or self-care (01) ==
LOC: ER 04:17
DX: H60.502 Unspecified acute noninfective otitis externa, left ear (principal)
CPT/HCPCS: 99282; 87205; 87070; S0119

== ENCOUNTER 2016-11-15 12:21 | Emergency (ER) | payer OTHER ==
[2016-11-15 12:31] VITALS: BP 125/77
--- NOTE | 2016-11-15 13:05 | ER Document Report ---
HPI - HPI Patient complains to provider of: Bleeding from left ear Onset: Yesterday Onset/Duration: Sudden Quality of pain: Achy Severity: Mild Pain Level: 2 Context: Patient was seen in the emergency room on Monday with a left otitis externa. Wick was placed in the ear. Wick fill out yesterday, and patient noted some bleeding coming from the left ear. Associated Symptoms: Earache - Left Exacerbated by: Denies Relieved by: Denies Similar symptoms previously: Yes Recently seen / treated by doctor: Yes - ROS ROS below otherwise negative: Yes Systems Reviewed and Negative: Yes All other systems reviewed and negative - CONSTITUTIONAL Constitutional: DENIES: Fever - EENT EENT: REPORTS: Ear Pain - Left. DENIES: Congestion - NEURO Neurology: DENIES: Headache - CARDIOVASCULAR Cardiovascular: DENIES: Chest pain - RESPIRATORY Respiratory: DENIES: Trouble Breathing - GASTROINTESTINAL Gastrointestinal: DENIES: Abdominal Pain - URINARY Urinary: DENIES: Dysuria - MUSCULOSKELETAL Musculoskeletal: DENIES: Extremity pain - DERM Skin Color: Normal Past Medical History - General Information source: Patient - Social History Smoking Status: Never Smoker Frequency of alcohol use: None Drug Abuse: None Lives with: Spouse/Significant other Family History: CAD, Hyperlipidemia, Hypertension Patient has suicidal ideation: No Patient has homicidal ideation: No - Medical History Medical History: Negative Surgical Hx: Negative Vertical Provider Document - CONSTITUTIONAL Agree With Documented VS: Yes Exam Limitations: No Limitations General Appearance: WD/WN, No Apparent Distress - INFECTION CONTROL TRAVEL OUTSIDE OF THE [place] IN LAST 30 DAYS: No - HEENT HEENT: Atraumatic, Normocephalic Notes: Patient still has some mild erythema noted to left ear canal. Small perforation noted in left TM. Mild discomfort with left auricle movement. No active bleeding or dried blood noted in canal. - NECK Neck: Normal Inspection, Supple - RESPIRATORY Respiratory: Breath Sounds Normal, No Respiratory Distress O2 Sat by Pulse Oximetry: 99 - CARDIOVASCULAR Cardiovascular: Regular Rate, Regular Rhythm - GI/ABDOMEN Gastrointestinal: Abdomen Soft - MUSCULOSKELETAL/EXTREMETIES Musculoskeletal/Extremeties: MAEW - NEURO Level of Consciousness: Awake, Alert, Appropriate - DERM Integumentary: Warm, Dry Course - Vital Signs Vital signs: Temp Pulse Resp BP Pulse Ox 98.0 F 94 16 125/77 99 11/15/16 12:29 11/15/16 12:29 11/15/16 12:29 11/15/16 12:29 11/15/16 12:29 Discharge - Discharge Clinical Impression: Perforation of left tympanic membrane Left otitis externa Qualifiers: Otitis externa type: unspecified type Chronicity: unspecified Qualified Code(s) : H60.92 - Unspecified otitis externa, left ear Condition: Good Disposition: HOME, SELF-CARE Additional Instructions: Stop amoxicillin and begin Augmentin Continue Ciprodex twice daily Tylenol or Motrin as needed for ear discomfort No water in ear Follow-up with your doctor next week for recheck, may need possible ENT referral if perforation does not resolve Return as needed Prescriptions: Amoxicillin/Potassium Clav [Augmentin 875-125 Tablet] 1 each PO BID #20 tablet Fluconazole [Diflucan] 150 mg PO ASDIR PRN #2 tablet PRN Reason:
== END 2016-11-15 13:27 | disposition home or self-care (01) ==
LOC: ER 12:21
DX: H60.92 Unspecified otitis externa, left ear (principal); H72.92 Unspecified perforation of tympanic membrane, left ear
CPT/HCPCS: 99282